=== PATIENT | male | born 1965 | race Caucasian/White ===

== ENCOUNTER 2018-01-10 20:07 | Inpatient (IN) | payer BC ==
[2018-01-10 20:42] LABS: BASO % 0.1 % (0.0-2.0); EOS # 0.1 K/uL (0.0-0.7); EOS % 1.2 % (0.0-4.0); HEMOGLOBIN 15.5 g/dL (12.0-18.0); LYMPH # 4.1 K/uL (1.0-4.3); MEAN CORPUSCULAR HEMOGLOBIN 30.1 pg (27.0-31.0); MEAN CORPUSCULAR HGB CONC 34.2 g/dL (33.0-37.0); MONO # 0.6 K/uL (0.0-0.8); MONO % 7.4 % (0.0-10.0); NEUT # 3.7 K/uL (1.8-7.0); NEUT % 43.3 % (50.0-75.0); NRBC % 0.1 % (0.0-2.0); RBC 5.15 Mil/uL (4.40-5.90); RED CELL DISTRIBUTION WIDTH 12.3 % (11.5-14.5); WHITE BLOOD COUNT 8.5 K/uL (4.8-10.8)
[2018-01-10 21:05] LABS: PROTHROMBIN TIME 12.6 SECONDS (9.7-12.2)
[2018-01-10 21:06] LABS: D DIMER < 200 ng/mlDDU (0-243); INR 1.1; PARTIAL THROMBOPLASTIN TIME 28 SECONDS (21-34)
[2018-01-10 21:10] LABS: ALBUMIN 4.7 g/dL (3.5-5.0); ALT/SGPT 42 U/L (21-72); AST/SGOT 33 U/L (17-59); BLOOD UREA NITROGEN 20 mg/dL (9-20); GFR AFRICAN-AMERICAN > 60; GFR NON-AFRICAN AMERICAN > 60; LIPASE 202 U/L (23-300)
[2018-01-10] MEDS ORDERED: Potassium Chloride 20 mEq ER Tab PO STA (21:12)
[2018-01-10 21:14] LABS: B-TYPE NATRIURETIC PEPTIDE 35.2 pg/mL (0-900)
[2018-01-10] MEDS ORDERED: Potassium Chloride 20 mEq ER Tab PO ONE (21:20)
[2018-01-10] MEDS ORDERED: Iodixanol 320 MG/ML 100 ML BOTTLE IV ONE (21:35)
--- NOTE | 2018-01-10 23:39 | C.PDOC ---
History Of Present Illness Pt has been having URI symptoms for the past few days. This afternoon he developed chest pain that radiates to his back and face. Time Seen by Provider: 01/10/18 20:12 Chief Complaint (Nursing): Chest Pain History Per: Patient, Family Onset/Duration Of Symptoms: Hrs (4) Current Symptoms Are (Timing): Still Present Severity: Severe Quality: "Pain" Associated Symptoms: Nausea Modifying Factors: Other Indicated Below Alleviating Factors: None Nitro Therapy Administered: 3, Per ED, Partial Relief Additional History Per: Prior Records Past Medical History Reviewed: Historical Data, Nursing Documentation, Vital Signs Vital Signs: Last Vital Signs Temp 97.9 F 01/10/18 23:47 Pulse 76 01/10/18 23:47 Resp 16 01/10/18 23:47 BP 160/87 H 01/10/18 23:47 Pulse Ox 98 01/10/18 23:51 - Medical History PMH: Diabetes, HTN, Hyperlipidemia Surgical History: Appendectomy Family History: States: Unknown Family Hx - Social History Hx Tobacco Use: No Hx Alcohol Use: No Hx Substance Use: No - Immunization History Hx Tetanus Toxoid Vaccination: No Hx Influenza Vaccination: No Hx Pneumococcal Vaccination: No Review Of Systems Except As Marked, All Systems Reviewed And Found Negative. Constitutional: Negative for: Fever, Weakness ENT: Positive for: Nose Congestion Cardiovascular: Positive for: Chest Pain Respiratory: Positive for: Cough. Negative for: Shortness of Breath, Hemoptysis Gastrointestinal: Positive for: Nausea. Negative for: Vomiting, Abdominal Pain Musculoskeletal: Positive for: Back Pain Skin: Negative for: Rash Neurological: Negative for: Weakness, Numbness, Seizures, Altered Mental Status Physical Exam - Physical Exam Appears: In Acute Distress Skin: Normal Color, Warm, Dry, No Rash Head: Atraumatic, Normacephalic Eye(s): bilateral: PERRL, EOMI Neck: Normal ROM, Supple Cardiovascular: Rhythm Regular Respiratory: Normal Breath Sounds, No Accessory Muscle Use Gastrointestinal/Abdominal: Soft, No Tenderness Back: No CVA Tenderness Extremity: Normal ROM, No Pedal Edema, No Calf Tenderness Extremity: Bilateral: Normal Color And Temperature Pulses: Left Radial: Normal, Right Radial: Normal Neurological/Psych: Oriented x3, Normal Motor, Normal Sensation ED Course And Treatment - Laboratory Results Result Diagrams: 01/10/18 20:34 01/10/18 20:34 Lab Interpretation: Abnormal ECG: Interpreted By Me, Viewed By Me ECG Rhythm: Sinus Tachycardia, Nonspecific Changes Rate From EC O2 Sat by Pulse Oximetry: 98 Pulse Ox Interpretation: Normal - Radiology CXR: Interpreted by Me, Viewed By Me CXR Interpretation: Yes: No Acute Disease - CT Scan/US CT Dissection study Other Rad Studies (CT/US): Read By Radiologist, Radiology Report Reviewed CT/US Interpretation: IMPRESSION: 1. No aortic dissection. 2. Pulmonary nodules. For low-risk patients, no follow-up is necessary. For. high-risk patients (smoking history or other known risk factors) an optional CT. at 12 months could be performed. 3. Incidental/non-acute findings are described above. IMPRESSION: 1. No aortic dissection. 2. Kidney lesion, incompletely characterized. Recommend nonemergent. ultrasound or MRI. 3. Incidental/non- acute findings are described above. - Physician Consult Information Physician Contacted: Feliz Louis Outcome Of Conversation: He will consult. He wants pt to receive Plavix 300mg and Lovenox full dose. After discussing with ICU Dr. Castorena, they state pt can be admitted to telemetry floor. ED EKG Interpretation - Interpreted by ED Physician Interpreted by ED Physician: Yes - Type Type: 12 lead EKG (Right sided) - Rhythm Rhythm: Normal sinus - Rate BPM: 96 - Impression Impression:: Non-specific Progress - Interventions Interventions:: Observation, Oxygen - Medications Administered Oral: Aspirin Intravenous: Antiemetic - Data Reviewed Data Reviewed: Lab, Diagnostic imaging, EKG, Old records - Patient Status Patient status: Mostly improved - Critical Care Citical Care: Excluding Proc Time Critical Care Time: 60 minutes - Continuity of Care Discussed patient case with:: Patient, ED Nurse, PMD Discussed pt. case with assessment consultant/specialty: Cardiology, Pulmonary/Crit. Care - Patient Plan Patient Plan: Admission, Telemetry Disposition Discussed With : Myriam Gamboa Comment: She accepted pt on her service. Doctor Will See Patient In The: Hospital Counseled Patient/Family Regarding: Studies Performed, Diagnosis - Disposition Disposition: HOSPITALIZED Disposition Time: 00:12 Condition: SERIOUS - Clinical Impression Clinical Impression: NSTEMI (non-ST elevated myocardial infarction)
--- NOTE | 2018-01-10 23:41 | CT ---
EXAM: CT Chest Without and With Intravenous Contrast CLINICAL HISTORY: 52 years old, male; Pain; Abdominal pain; Flank; Upper; Chest pain; Radiating; Additional info: Chest pain radiating to back TECHNIQUE: Axial computed tomography images of the chest without and with intravenous contrast during the arterial phase of enhancement. All CT scans at this facility use one or more dose reduction techniques, viz.: automated exposure control; ma/kV adjustment per patient size (including targeted exams where dose is matched to indication; i.e. head); or iterative reconstruction technique. Coronal and sagittal reformatted images were created and reviewed. CONTRAST: 100 mL of [id number] administered intravenously. COMPARISON: No relevant prior studies available. FINDINGS: Pulmonary arteries: No pulmonary embolism. Aorta: No dissection. No aneurysm. Minimal atherosclerotic disease. Lungs: No consolidation. RLL calcified granuloma. Few pulmonary nodules, up to 0.3 cm. Pleural space: No significant effusion. No pneumothorax. Heart: No cardiomegaly. No significant pericardial effusion. Mild coronary artery calcifications. Bones/joints: Mild degenerative changes of spine. No acute fracture. Soft tissues: Unremarkable. Lymph nodes: Few calcified hilar lymph nodes. IMPRESSION: 1. No aortic dissection. 2. Pulmonary nodules. For low-risk patients, no follow-up is necessary. For high-risk patients (smoking history or other known risk factors) an optional CT at 12 months could be performed. 3. Incidental/non-acute findings are described above. EXAM: CT Abdomen and Pelvis Without and With Intravenous Contrast CLINICAL HISTORY: 52 years old, male; Pain; Abdominal pain; Flank; Upper; Chest pain; Radiating; Additional info: Chest pain radiating to back TECHNIQUE: Axial computed tomography images of the abdomen and pelvis without and with intravenous contrast during the arterial phase of enhancement. All CT scans at this facility use one or more dose reduction techniques, viz.: automated exposure control; ma/kV adjustment per patient size (including targeted exams where dose is matched to indication; i.e. head); or iterative reconstruction technique. Coronal and sagittal reformatted images were created and reviewed. CONTRAST: 100 mL of [id number] administered intravenously. COMPARISON: No relevant prior studies available. FINDINGS: VASCULATURE: Aorta: No dissection. No aneurysm. Minimal atherosclerotic disease. Celiac trunk and mesenteric arteries: No occlusion or significant stenosis. Renal arteries: No occlusion or significant stenosis. Iliac arteries: Minimal atherosclerotic disease. No occlusion or significant stenosis. ABDOMEN: Liver: Unremarkable. Gallbladder and bile ducts: No calcified stones. No ductal dilation. Pancreas: No ductal dilation. No mass. Spleen: No splenomegaly. Adrenals: Mild hypertrophy of adrenal glands. Kidneys and ureters: Few small calculi within RIGHT kidney. 2.2 x 2.2 x 2.2 cm lesion within RIGHT kidney, 22 Hounsfield units on post contrast images and 10 Hounsfield units on non-contrast images. Few too small to characterize lesions within RIGHT kidney. No hydronephrosis. Stomach and bowel: No obstruction. No mucosal thickening. Appendix: Appendectomy. PELVIS: Bladder: Unremarkable. Reproductive: Unremarkable as visualized. ABDOMEN and PELVIS: Intraperitoneal space: No significant fluid collection. No free air. Bones/joints: Early degenerative changes of spine. No acute fracture. Soft tissues: Tiny umbilical hernia containing fat. Lymph nodes: No pathologically enlarged lymph nodes. IMPRESSION: 1. No aortic dissection. 2. Kidney lesion, incompletely characterized. Recommend nonemergent ultrasound or MRI. 3. Incidental/non-acute findings are described above.
[2018-01-10] MEDS ORDERED: Enoxaparin 60 mg Syringe SC STA (23:55)
[2018-01-10] MEDS ORDERED: Nitroglycerin 2% Ointment Foilpak UD TOP STA (23:57)
[2018-01-11] MEDS ORDERED: Enoxaparin 80 mg Syringe ONE (00:02)
[2018-01-11] MEDS ORDERED: Nitroglycerin 2% Ointment Foilpak UD TOP ONE ×2 (00:03→09:53)
[2018-01-11] MEDS ORDERED: (Novolin R) Insulin Human Regular 100 units/ml vial IV STA (00:08)
[2018-01-11 04:28] LABS: ALB/GLOB RATIO 1.1 (1.0-2.1); ALBUMIN 3.8 g/dL (3.5-5.0); ALT/SGPT 38 U/L (21-72); AST/SGOT 67 U/L (17-59); BLOOD UREA NITROGEN 19 mg/dL (9-20); CALCIUM 9.1 mg/dl (8.6-10.4); GFR AFRICAN-AMERICAN > 60; GFR NON-AFRICAN AMERICAN > 60
[2018-01-11 04:35] LABS: CK-MB 20.3 ng/mL (0.0-3.38)
[2018-01-11] MEDS ORDERED: Nitroglycerin 50mg in D5W 50 MG/250 ML BOTTLE IV ONE (06:10)
[2018-01-11] MEDS ORDERED: Nitroglycerin 50mg in D5W 50 MG/250 ML BOTTLE IV SCH (06:15)
[2018-01-11] MEDS ORDERED: Heparin 0 ML IV ONE (07:20)
[2018-01-11] MEDS: (Novolog) Insulin Aspart, Recombinant 100 u/ml 10 ml vial SC SCH ×3 (07:30→16:42)
[2018-01-11] MEDS ORDERED: Iohexol 350mgl/ml 50 ML ONE (07:49)
--- NOTE | 2018-01-11 08:05 | CP.PCM.CON ---
History of Present Illness - History of Present Illness History of Present Illness: 52 M with hx of DM, HTN and hyperlipidemia presented with Non STEMI Urgent cath 1. L Main: Patent 2. LAD: Patent, D1 100% 2. L Cx: Distal 80%, OM1 99% 4. RCA: Patent, PDA 70% 5. EF: 55%, Lateral hypo A/P: Multi small vessel disease Continue anticoagulatio with Lovenox, ASA, Plavix, Statins and B blockers IV Hydration NPO after MN except medication For PCI at [place] tomorrow am Past Patient History - Past Social History Smoking Status: Never Smoked - CARDIAC Hx Hypertension: Yes - PULMONARY Hx Respiratory Disorders: No - NEUROLOGICAL Hx Neurological Disorder: No - HEENT Hx HEENT Problems: No - RENAL Hx Chronic Kidney Disease: No - ENDOCRINE/METABOLIC Hx Diabetes Mellitus Type 2: Yes - HEMATOLOGICAL/ONCOLOGICAL Hx Blood Disorders: No - INTEGUMENTARY Hx Dermatological Problems: No - MUSCULOSKELETAL/RHEUMATOLOGICAL Hx Musculoskeletal Disorders: No - GASTROINTESTINAL Hx Gastrointestinal Disorders: No - GENITOURINARY/GYNECOLOGICAL Hx Genitourinary Disorders: No - PSYCHIATRIC Hx Substance Use: No - SURGICAL HISTORY Hx Appendectomy: Yes Meds Allergies/Adverse Reactions: Allergies Allergy/AdvReac Type Severity Reaction Status Date / Time No Known Allergies Allergy Unverified 01/10/18 20:20 - Medications Medications: Current Medications Acetaminophen (Tylenol 325mg Tab) 650 mg PO Q6 PRN PRN Reason: CHEST PAIN Last Admin: 01/11/18 06:34 Dose: 650 mg Amlodipine Besylate (Norvasc) 1 mg PO DAILY [facility] Aspirin (Aspirin Chewable) 1 mg PO DAILY [facility] Clopidogrel Bisulfate (Plavix) 75 mg PO DAILY [facility] Enoxaparin Sodium (Lovenox) 70 mg SC Q12 [facility] Glipizide (Glucotrol) 1 mg PO BID [facility] Home Med (Canagliflozin [Invokana]) 1 tab PO DAILY [facility] Home Med (Linagliptin [Tradjenta]) 1 tab PO DAILY [facility] Nitroglycerin/Dextrose (Nitroglycerin 50 Mg/250 Ml D5w) 50 mg in 250 mls @ 3 mls/hr IV .Q24H [facility]; 10 MCG/MIN PRN Reason: Protocol Last Admin: 01/11/18 06:15 Dose: 3 mls/hr Insulin Aspart (Novolog) 0 unit SC ACTID [facility] PRN Reason: Protocol Losartan Potassium (Cozaar) 1 mg PO DAILY [facility] Metformin HCl (Glucophage) 1 mg PO BID [facility] Pantoprazole Sodium (Protonix Ec Tab) 40 mg PO DAILY [facility] Rosuvastatin Calcium (Crestor) 20 mg PO [facility] Results - Vital Signs Recent Vital Signs: Last Vital Signs Temp 98.2 F 01/11/18 06:55 Pulse 79 01/11/18 06:55 Resp 15 01/11/18 06:55 BP 143/83 01/11/18 06:55 Pulse Ox 98 01/11/18 06:55 - Labs Result Diagrams: 01/10/18 20:34 01/11/18 03:59 Labs: Laboratory Results - last 24 hr 01/10/18 01/10/18 01/10/18 20:18 20:34 20:34 WBC 8.5 RBC 5.15 Hgb 15.5 Hct 45.4 MCV 88.0 MCH 30.1 MCHC 34.2 RDW 12.3 Plt Count 283 MPV 9.0 Neut % (Auto) 43.3 L Lymph % (Auto) 48.0 H [place] % (Auto) 7.4 Eos % (Auto) 1.2 Baso % (Auto) 0.1 Neut # (Auto) 3.7 Lymph # (Auto) 4.1 [place] # (Auto) 0.6 Eos # (Auto) 0.1 Baso # (Auto) 0.0 PT 12.6 H INR 1.1 APTT 28 D-Dimer, Quantitative < 200 Sodium Potassium Chloride Carbon Dioxide Anion Gap BUN Creatinine Est GFR ( Amer) Est GFR (Non-Af Amer) POC Glucose (mg/dL) 399 H Random Glucose Hemoglobin A1c Calcium Total Bilirubin AST ALT Alkaline Phosphatase Total Creatine Kinase CK-MB (Mass) Troponin I NT-Pro-B Natriuret Pep Total Protein Albumin Globulin Albumin/Globulin Ratio Lipase 01/10/18 01/11/18 01/11/18 20:34 00:11 03:59 WBC RBC Hgb Hct MCV MCH MCHC RDW Plt Count MPV Neut % (Auto) Lymph % (Auto) [place] % (Auto) Eos % (Auto) Baso % (Auto) Neut # (Auto) Lymph # (Auto) [place] # (Auto) Eos # (Auto) Baso # (Auto) PT INR APTT D-Dimer, Quantitative Sodium 137 135 Potassium 3.2 L 4.0 Chloride 94 L 97 L Carbon Dioxide 26 24 Anion Gap 21 H 18 BUN 20 19 Creatinine 0.7 L 0.7 L Est GFR ( Amer) > 60 > 60 Est GFR (Non-Af Amer) > 60 > 60 POC Glucose (mg/dL) 257 H Random Glucose 448 H* 344 H Hemoglobin A1c Calcium 10.0 9.1 Total Bilirubin 0.5 0.5 AST 33 67 H D ALT 42 38 Alkaline Phosphatase 150 H 112 Total Creatine Kinase 440 H CK-MB (Mass) 20.3 H Troponin I 0.3690 H* 5.0300 H* NT-Pro-B Natriuret Pep 35.2 Total Protein 9.2 H 7.2 Albumin 4.7 3.8 Globulin 4.5 H 3.4 Albumin/Globulin Ratio 1.0 1.1 Lipase 202 04/16/18 03:59 WBC RBC Hgb Hct MCV MCH MCHC RDW Plt Count MPV Neut % (Auto) Lymph % (Auto) [place] % (Auto) Eos % (Auto) Baso % (Auto) Neut # (Auto) Lymph # (Auto) [place] # (Auto) Eos # (Auto) Baso # (Auto) PT INR APTT D-Dimer, Quantitative Sodium Potassium Chloride Carbon Dioxide Anion Gap BUN Creatinine Est GFR ( Amer) Est GFR (Non-Af Amer) POC Glucose (mg/dL) Random Glucose Hemoglobin A1c 10.3 H Calcium Total Bilirubin AST ALT Alkaline Phosphatase Total Creatine Kinase CK-MB (Mass) Troponin I NT-Pro-B Natriuret Pep Total Protein Albumin Globulin Albumin/Globulin Ratio Lipase
[2018-01-11] MEDS: Sodium Chloride 0.9% 1,000 ML IV SCH ×2 (08:30→21:52)
--- NOTE | 2018-01-11 08:42 | RAD ---
Chest x-ray single frontal view History: Chest pain. Comparison: 01/10/2018 Findings: Mild venous congestion. Tortuous ectatic aorta. Top normal heart size. Degenerative changes in the spine. Impression: Mild venous congestion.
--- NOTE | 2018-01-11 08:52 | CP.PCM.CON ---
History of Present Illness - History of Present Illness History of Present Illness: Critical Care consult note for Dr. Mckeon This is a 52 year old male with PMHx HTN, DM, HLD who presented to the hospital with chest pain. Patient states that he collapsed and was brought in by his . Patient had elevated troponins in the ED and was placed on a Tridil drip. Patient underwent cardiac catheterization earlier this morning with Dr. Louis and found multiple small vessel blockages. Patient is for PCI tomorrow in [employer] for stent placement. PMHx: HTN, DM, HLD PSHx: Appendectomy Allergies: NKDA Social: Denies tobacco, alcohol, drugs. Works in the [employer]. Family Hx: DM runs in the family. No known cardiac history in the family. Review of Systems - Constitutional Constitutional: absent: Chills, Fever - EENT Eyes: absent: Change in Vision Ears: absent: Decreased Hearing Nose/Mouth/Throat: absent: Nasal Congestion - Cardiovascular Cardiovascular: Chest Pain - Respiratory Respiratory: absent: Cough, Dyspnea, Wheezing - Gastrointestinal Gastrointestinal: absent: Abdominal Pain, Nausea, Vomiting - Genitourinary Genitourinary: absent: Dysuria - Musculoskeletal Musculoskeletal: absent: Back Pain - Integumentary Integumentary: absent: Rash - Neurological Neurological: absent: Dizziness, Weakness - Psychiatric Psychiatric: absent: Anxiety - Endocrine Endocrine: absent: Palpitations Past Patient History - Past Social History Smoking Status: Never Smoked - CARDIAC Hx Hypertension: Yes - PULMONARY Hx Respiratory Disorders: No - NEUROLOGICAL Hx Neurological Disorder: No - HEENT Hx HEENT Problems: No - RENAL Hx Chronic Kidney Disease: No - ENDOCRINE/METABOLIC Hx Diabetes Mellitus Type 2: Yes - HEMATOLOGICAL/ONCOLOGICAL Hx Blood Disorders: No - INTEGUMENTARY Hx Dermatological Problems: No - MUSCULOSKELETAL/RHEUMATOLOGICAL Hx Musculoskeletal Disorders: No - GASTROINTESTINAL Hx Gastrointestinal Disorders: No - GENITOURINARY/GYNECOLOGICAL Hx Genitourinary Disorders: No - PSYCHIATRIC Hx Substance Use: No - SURGICAL HISTORY Hx Appendectomy: Yes Meds Allergies/Adverse Reactions: Allergies Allergy/AdvReac Type Severity Reaction Status Date / Time No Known Allergies Allergy Unverified 01/10/18 20:20 - Medications Medications: Current Medications Acetaminophen (Tylenol 325mg Tab) 650 mg PO Q6 PRN PRN Reason: CHEST PAIN Last Admin: 01/11/18 06:34 Dose: 650 mg Amlodipine Besylate (Norvasc) 5 mg PO DAILY [facility] Aspirin (Ecotrin) 81 mg PO DAILY [facility] Clopidogrel Bisulfate (Plavix) 75 mg PO DAILY [facility] Enoxaparin Sodium (Lovenox) 70 mg SC Q12 [facility] Sodium Chloride (Sodium Chloride 0.9%) 1,000 mls @ 80 mls/hr IV .[id number] [facility] Insulin Aspart (Novolog) 0 unit SC ACTID [facility] PRN Reason: Protocol Metoprolol Succinate (Toprol Xl) 12.5 mg PO BID [facility] Pantoprazole Sodium (Protonix Ec Tab) 40 mg PO DAILY [facility] Rosuvastatin Calcium (Crestor) 40 mg PO HS [facility] Physical Exam - Constitutional Appears: No Acute Distress - Head Exam Head Exam: ATRAUMATIC, NORMOCEPHALIC - Eye Exam Eye Exam: EOMI, Normal appearance - ENT Exam ENT Exam: Mucous Membranes Moist - Respiratory Exam Respiratory Exam: Clear to Auscultation Bilateral. absent: Rales, Rhonchi, Wheezes - Cardiovascular Exam Cardiovascular Exam: REGULAR RHYTHM, +S1, +S2 - GI/Abdominal Exam GI & Abdominal Exam: Normal Bowel Sounds, Soft. absent: Distended, Tenderness - Extremities Exam Extremities exam: Positive for: pedal pulses present. Negative for: pedal edema , tenderness - Neurological Exam Neurological exam: Alert, CN II-XII Intact, Oriented x3 - Psychiatric Exam Psychiatric exam: Normal Affect, Normal Mood - Skin Skin Exam: Dry, Warm Additional comments: Cardiac cath site on right groin with no hematoma or signs of bleeding Results - Vital Signs Recent Vital Signs: Last Vital Signs Temp 98.2 F 01/11/18 06:55 Pulse 79 01/11/18 06:55 Resp 15 01/11/18 06:55 BP 143/83 01/11/18 06:55 Pulse Ox 98 01/11/18 06:55 - Labs Result Diagrams: 01/10/18 20:34 01/11/18 03:59 Labs: Laboratory Results - last 24 hr 01/10/18 01/10/18 01/10/18 20:18 20:34 20:34 WBC 8.5 RBC 5.15 Hgb 15.5 Hct 45.4 MCV 88.0 MCH 30.1 MCHC 34.2 RDW 12.3 Plt Count 283 MPV 9.0 Neut % (Auto) 43.3 L Lymph % (Auto) 48.0 H [place] % (Auto) 7.4 Eos % (Auto) 1.2 Baso % (Auto) 0.1 Neut # (Auto) 3.7 Lymph # (Auto) 4.1 [place] # (Auto) 0.6 Eos # (Auto) 0.1 Baso # (Auto) 0.0 PT 12.6 H INR 1.1 APTT 28 D-Dimer, Quantitative < 200 Sodium Potassium Chloride Carbon Dioxide Anion Gap BUN Creatinine Est GFR ( Amer) Est GFR (Non-Af Amer) POC Glucose (mg/dL) 399 H Random Glucose Hemoglobin A1c Calcium Total Bilirubin AST ALT Alkaline Phosphatase Total Creatine Kinase CK-MB (Mass) Troponin I NT-Pro-B Natriuret Pep Total Protein Albumin Globulin Albumin/Globulin Ratio Lipase 01/10/18 01/11/18 01/11/18 20:34 00:11 03:59 WBC RBC Hgb Hct MCV MCH MCHC RDW Plt Count MPV Neut % (Auto) Lymph % (Auto) [place] % (Auto) Eos % (Auto) Baso % (Auto) Neut # (Auto) Lymph # (Auto) [place] # (Auto) Eos # (Auto) Baso # (Auto) PT INR APTT D-Dimer, Quantitative Sodium 137 135 Potassium 3.2 L 4.0 Chloride 94 L 97 L Carbon Dioxide 26 24 Anion Gap 21 H 18 BUN 20 19 Creatinine 0.7 L 0.7 L Est GFR ( Amer) > 60 > 60 Est GFR (Non-Af Amer) > 60 > 60 POC Glucose (mg/dL) 257 H Random Glucose 448 H* 344 H Hemoglobin A1c Calcium 10.0 9.1 Total Bilirubin 0.5 0.5 AST 33 67 H D ALT 42 38 Alkaline Phosphatase 150 H 112 Total Creatine Kinase 440 H CK-MB (Mass) 20.3 H Troponin I 0.3690 H* 5.0300 H* NT-Pro-B Natriuret Pep 35.2 Total Protein 9.2 H 7.2 Albumin 4.7 3.8 Globulin 4.5 H 3.4 Albumin/Globulin Ratio 1.0 1.1 Lipase 202 01/11/18 03:59 WBC RBC Hgb Hct MCV MCH MCHC RDW Plt Count MPV Neut % (Auto) Lymph % (Auto) [place] % (Auto) Eos % (Auto) Baso % (Auto) Neut # (Auto) Lymph # (Auto) [place] # (Auto) Eos # (Auto) Baso # (Auto) PT INR APTT D-Dimer, Quantitative Sodium Potassium Chloride Carbon Dioxide Anion Gap BUN Creatinine Est GFR ( Amer) Est GFR (Non-Af Amer) POC Glucose (mg/dL) Random Glucose Hemoglobin A1c 10.3 H Calcium Total Bilirubin AST ALT Alkaline Phosphatase Total Creatine Kinase CK-MB (Mass) Troponin I NT-Pro-B Natriuret Pep Total Protein Albumin Globulin Albumin/Globulin Ratio Lipase Assessment & Plan - Assessment and Plan (Free Text) Assessment: This is a 52 year old male with PMHx HTN, DM, HLD who presented with chest pain. Patient was diagnosed with NSTEMI and [facility] where he was found with multi-small vessel disease. As such, he is set for PCI in [place] tomorrow. Neuro Awake, Alert Cardio Lovenox 70 mg SC Q12H Lopressor 25 mg PO BID Nitro paste prn chest pain Crestor 40 mg PO HS ASA 81 mg PO daily Plavix 75 mg PO daily Pulm Saturating well Endocrine Accuchecks Novolog Sliding Scale Prophylaxis Protonix 40 mg PO daily Therapeutic Lovenox NS 80 cc/hr Discussed with Dr. Mckeon
[2018-01-11] MEDS ORDERED: Nitroglycerin 2% Ointment Foilpak UD TOP PRN (09:52)
[2018-01-11] MEDS ORDERED: Metoprolol Succinate 12.5 mg XL PO SCH (10:00)
[2018-01-11] MEDS ORDERED: Home Med 1 UNIT (Linagliptin [Tradjenta] 1 TAB) PO SCH (10:00)
[2018-01-11] MEDS ORDERED: Pantoprazole 40 mg EC Tab PO SCH (10:00)
[2018-01-11] MEDS ORDERED: CANAGLIFLOZIN PO SCH (10:00)
--- NOTE | 2018-01-11 10:13 | CP.PCM.HP ---
History of Present Illness - History of Present Illness History of Present Illness: 52 y.o. male with PMH Uncontrolled DM2 Hypertensin Cholesterol Renal Stone admitted due to to [facility] patient reports chets pain few hours [employer], as discomfort and headache- , he tried to eat but chest pain recurred and worsened and went to ER - in ER patient reports he collapsed but no LBM no tounge biting , Labs showed high Troponins but no EKG changes patient was givenm lovenox aspirin and admitted for further evaluation and management PMH Uncontrolled DM2 Hypertension Cholesteriol Renal stone Surgery Appendectomy Medications metformin glipizide losartan AMLODIPINE TRADJENTA ATORVASTATIN INVOKANA IMMUNIZATION PNEUMOVAX 2014 FLU SHOT 2017 Present on Admission - Present on Admission Any Indicators Present on Admission: Yes History of DVT/PE: No History of Uncontrolled Diabetes: Yes Urinary Catheter: No Decubitus Ulcer Present: No Review of Systems - Constitutional Constitutional: absent: Anorexia, Chills, Fever - EENT Eyes: absent: Other Visual Disturbances Ears: absent: Decreased Hearing Nose/Mouth/Throat: absent: Epistaxis, Nasal Congestion, Sore Throat - Cardiovascular Cardiovascular: Chest Pain, Dyspnea, Lightheadedness, Syncope - Respiratory Respiratory: absent: Cough - Gastrointestinal Gastrointestinal: absent: Abdominal Pain, Diarrhea, Vomiting - Genitourinary Genitourinary: absent: Difficulty Urinating, Flank Pain, Hematuria - Musculoskeletal Musculoskeletal: absent: Abnormal Gait, Deformity - Integumentary Integumentary: absent: Bleeding Lesions, Skin Ulcer, Sores, Jaundice - Neurological Neurological: absent: Abnormal Gait, Behavioral Changes, Disequilibrium, Dizziness - Psychiatric Psychiatric: absent: Confusion, Depression, Memory Loss - Endocrine Endocrine: absent: Polydipsia, Polyphagia - Hematologic/Lymphatic Hematologic: Easy Bruising. absent: Easy Bleeding Past Patient History - Past Medical History & Family History Past Medical History?: Yes - Past Social History Smoking Status: Never Smoked - CARDIAC Hx Hypertension: Yes - PULMONARY Hx Respiratory Disorders: No - NEUROLOGICAL Hx Neurological Disorder: No - HEENT Hx HEENT Problems: No - RENAL Hx Chronic Kidney Disease: No - ENDOCRINE/METABOLIC Hx Diabetes Mellitus Type 2: Yes - HEMATOLOGICAL/ONCOLOGICAL Hx Blood Disorders: No - INTEGUMENTARY Hx Dermatological Problems: No - MUSCULOSKELETAL/RHEUMATOLOGICAL Hx Musculoskeletal Disorders: No - GASTROINTESTINAL Hx Gastrointestinal Disorders: No - GENITOURINARY/GYNECOLOGICAL Hx Genitourinary Disorders: No - PSYCHIATRIC Hx Substance Use: No - SURGICAL HISTORY Hx Appendectomy: Yes Meds Allergies/Adverse Reactions: Allergies Allergy/AdvReac Type Severity Reaction Status Date / Time No Known Allergies Allergy Unverified 01/10/18 20:20 Physical Exam - Constitutional Appears: Other (PATIENT SEEN IN ICU- POST CARDIAC CATH- PATIENT IS CONVERSANT, VERY MUCH AWWARE OF CONDITION, EVENTS AND PLAN DISCUSSED BY DR TENA ) - Head Exam Head Exam: ATRAUMATIC, NORMOCEPHALIC - Eye Exam Eye Exam: Normal appearance. absent: Nystagmus - ENT Exam ENT Exam: Mucous Membranes Moist - Neck Exam Neck exam: Positive for: Full Rom - Respiratory Exam Respiratory Exam: Clear to Auscultation Bilateral, NORMAL BREATHING PATTERN - Cardiovascular Exam Cardiovascular Exam: REGULAR RHYTHM - GI/Abdominal Exam GI & Abdominal Exam: Normal Bowel Sounds, Soft - Extremities Exam Extremities exam: Positive for: full ROM, normal inspection, pedal pulses present. Negative for: joint swelling, pedal edema, tenderness - Back Exam Back exam: FULL ROM. absent: rash noted, tenderness - Neurological Exam Neurological exam: Alert, Normal Gait, Oriented x3, Reflexes Normal - Psychiatric Exam Psychiatric exam: Normal Affect, Normal Mood - Skin Skin Exam: Intact, Normal Color Results - Vital Signs Recent Vital Signs: Last Vital Signs Temp 98.2 F 01/11/18 06:55 Pulse 79 01/11/18 06:55 Resp 15 01/11/18 06:55 BP 143/83 01/11/18 06:55 Pulse Ox 98 01/11/18 06:55 - Labs Result Diagrams: 01/10/18 20:34 01/11/18 03:59 Labs: Laboratory Results - last 24 hr 01/10/18 01/10/18 01/10/18 20:18 20:34 20:34 WBC 8.5 RBC 5.15 Hgb 15.5 Hct 45.4 MCV 88.0 MCH 30.1 MCHC 34.2 RDW 12.3 Plt Count 283 MPV 9.0 Neut % (Auto) 43.3 L Lymph % (Auto) 48.0 H [place] % (Auto) 7.4 Eos % (Auto) 1.2 Baso % (Auto) 0.1 Neut # (Auto) 3.7 Lymph # (Auto) 4.1 [place] # (Auto) 0.6 Eos # (Auto) 0.1 Baso # (Auto) 0.0 PT 12.6 H INR 1.1 APTT 28 D-Dimer, Quantitative < 200 Sodium Potassium Chloride Carbon Dioxide Anion Gap BUN Creatinine Est GFR ( Amer) Est GFR (Non-Af Amer) POC Glucose (mg/dL) 399 H Random Glucose Hemoglobin A1c Calcium Total Bilirubin AST ALT Alkaline Phosphatase Total Creatine Kinase CK-MB (Mass) Troponin I NT-Pro-B Natriuret Pep Total Protein Albumin Globulin Albumin/Globulin Ratio Lipase 01/10/18 01/11/18 01/11/18 20:34 00:11 03:59 WBC RBC Hgb Hct MCV MCH MCHC RDW Plt Count MPV Neut % (Auto) Lymph % (Auto) [place] % (Auto) Eos % (Auto) Baso % (Auto) Neut # (Auto) Lymph # (Auto) [place] # (Auto) Eos # (Auto) Baso # (Auto) PT INR APTT D-Dimer, Quantitative Sodium 137 135 Potassium 3.2 L 4.0 Chloride 94 L 97 L Carbon Dioxide 26 24 Anion Gap 21 H 18 BUN 20 19 Creatinine 0.7 L 0.7 L Est GFR ( Amer) > 60 > 60 Est GFR (Non-Af Amer) > 60 > 60 POC Glucose (mg/dL) 257 H Random Glucose 448 H* 344 H Hemoglobin A1c Calcium 10.0 9.1 Total Bilirubin 0.5 0.5 AST 33 67 H D ALT 42 38 Alkaline Phosphatase 150 H 112 Total Creatine Kinase 440 H CK-MB (Mass) 20.3 H Troponin I 0.3690 H* 5.0300 H* NT-Pro-B Natriuret Pep 35.2 Total Protein 9.2 H 7.2 Albumin 4.7 3.8 Globulin 4.5 H 3.4 Albumin/Globulin Ratio 1.0 1.1 Lipase 202 01/11/18 01/11/18 03:59 09:03 WBC RBC Hgb Hct MCV MCH MCHC RDW Plt Count MPV Neut % (Auto) Lymph % (Auto) [place] % (Auto) Eos % (Auto) Baso % (Auto) Neut # (Auto) Lymph # (Auto) [place] # (Auto) Eos # (Auto) Baso # (Auto) PT INR APTT D-Dimer, Quantitative Sodium Potassium Chloride Carbon Dioxide Anion Gap BUN Creatinine Est GFR ( Amer) Est GFR (Non-Af Amer) POC Glucose (mg/dL) 285 H Random Glucose Hemoglobin A1c 10.3 H Calcium Total Bilirubin AST ALT Alkaline Phosphatase Total Creatine Kinase CK-MB (Mass) Troponin I NT-Pro-B Natriuret Pep Total Protein Albumin Globulin Albumin/Globulin Ratio Lipase Assessment & Plan - Assessment and Plan (Free Text) Assessment: PATIENT WITH HISTORY OF UNCONTROLLED DIABETES @- DUE TO POOR COMPLIANCE, HYPERTENSION ADMITTED DUE TO NSTEMI- POST CARDIAC CATH TODAY- FINDINS PER CARDIO NOTES- FOR STENT IN MAYBEURY TOMORROW- , CURRENTLY IN ICU, CARDIAC MEDS NIDDM2 UNCONTROLLED- ACCUCHECK DIETARY DISCUSSION , INSULIN COVERAGE, CONTINUE MEDICATIONS HYPERTENSION- ON MEDS GI PROPHYLAXIZ ON LOVENOX CT NO DISSECTION CXR-SPINE DJD, MILD VENOUS CONGESTION FURTHER DISCUSSION WITH PATIENT STABLE - Date & Time Date: 01/11/18 Time: 08:45
[2018-01-11] MEDS: Enoxaparin 80 mg Syringe SC SCH ×2 (10:59→21:53)
[2018-01-11] MEDS ORDERED: (Novolin R) Insulin Human Regular 100 units/ml vial SC SCH (11:30)
[2018-01-11] MEDS ORDERED: Metoprolol 1 mg/ml Inj IVP ONE (15:07)
[2018-01-11] MEDS: Metoprolol Succinate 12.5 mg XL PO SCH (17:41)
[2018-01-12 06:24] LABS: BASO % 0.3 % (0.0-2.0); EOS # 0.1 K/uL (0.0-0.7); EOS % 0.7 % (0.0-4.0); HEMOGLOBIN 14.6 g/dL (12.0-18.0); LYMPH # 3.1 K/uL (1.0-4.3); MEAN CELL VOLUME 87.5 fL (80.0-94.0); MEAN CORPUSCULAR HEMOGLOBIN 29.9 pg (27.0-31.0); MEAN CORPUSCULAR HGB CONC 34.1 g/dL (33.0-37.0); MEAN PLATELET VOLUME 9.1 fL (7.2-11.7); MONO # 0.7 K/uL (0.0-0.8); MONO % 6.6 % (0.0-10.0); NEUT # 7.2 K/uL (1.8-7.0); NEUT % 64.4 % (50.0-75.0); NRBC % 0.1 % (0.0-2.0); RBC 4.88 Mil/uL (4.40-5.90); RED CELL DISTRIBUTION WIDTH 12.3 % (11.5-14.5); WHITE BLOOD COUNT 11.2 K/uL (4.8-10.8)
[2018-01-12 06:42] LABS: ALBUMIN 4.1 g/dL (3.5-5.0); ALT/SGPT 39 U/L (21-72); AST/SGOT 92 U/L (17-59); BLOOD UREA NITROGEN 12 mg/dL (9-20); CALCIUM 8.9 mg/dl (8.6-10.4); GFR AFRICAN-AMERICAN > 60; GFR NON-AFRICAN AMERICAN > 60
[2018-01-12] MEDS: (Novolog) Insulin Aspart, Recombinant 100 u/ml 10 ml vial SC SCH ×4 (07:55→21:18)
--- NOTE | 2018-01-12 09:21 | CARDCATH ---
PROCEDURE DATE: 01/11/2018 PROCEDURES: 1. Left heart catheterization. 2. Coronary angiogram. 3. Radiological supervision and radiological interpretation of the coronary angiogram and left heart catheterization. CLINICAL INDICATIONS: 1. Chest pain. 2. Non-ST elevation myocardial infarction. 3. Coronary artery disease. 4. Hypertension. 5. Hyperlipidemia. 6. Diabetes type 2. REFERRING PHYSICIAN: Myriam Gamboa MD PERFORMING PHYSICIAN: Feliz Louis MD PROCEDURE: After informed consent, the patient was prepped and draped in the usual sterile fashion. A 2% lidocaine was given in the right groin for local anesthesia. Using micropuncture technique, a 6-Malay sheath was introduced into the right common femoral artery. A 6-Malay JL4 diagnostic catheter crossed into the left ventricle across the aortic valve. LV end-diastolic pressure was measured. Contrast injected and the LV angiogram was done. Then the catheter was pulled back across the aortic valve. Gradient across the aortic valve was measured. Then the same catheter was engaged into the right coronary artery. Contrast injected and right coronary angiogram was done. A JL4 6-Malay diagnostic catheter engaged into left main coronary artery. Contrast injected and left coronary angiogram was performed. The patient tolerated the procedure well. Post procedure, Perclose suture deployed with excellent hemostasis. FINDINGS: 1. Left main coronary artery is patent. 2. Left anterior descending coronary artery is patent; however, large D1 has 100% proximal occlusion. 3. Distal left circumflex has a diffuse long 80% stenosis. Obtuse marginal 1 has 99% mid stenosis. 4. Right coronary artery is patent; however PDA has 70% mid stenosis. 5. LV ejection fraction is approximately 55%. There is lateral wall hypokinesis. EDP is 20. No gradient across the aortic valve. IMPRESSION: Multivessel disease as described above. The patient will be transferred to [facility] for elective interventions of diagonal and left circumflex coronary artery. After one month, the patient will be scheduled for right coronary artery intervention. The patient will be transferred to Intensive Care Unit for further management. Feliz Louis MD
[2018-01-12] MEDS: Enoxaparin 80 mg Syringe SC SCH (09:41)
[2018-01-12] MEDS: Metoprolol Succinate 12.5 mg XL PO SCH (09:42)
--- NOTE | 2018-01-12 13:22 | CP.PCM.PN ---
Subjective - Date & Time of Evaluation Date of Evaluation: 01/12/18 Time of Evaluation: 13:20 - Subjective Subjective: Patient s/p L Cx and OM 1Drug Eluting stents placement PTCA of large D1 IV hydration Ambulate after 4pm today Check labs in am BP management CAD management Objective - Vital Signs/Intake and Output Vital Signs (last 24 hours): Temp Pulse Resp BP Pulse Ox 97.9 F 85 19 169/100 H 97 01/12/18 04:00 01/12/18 06:51 01/12/18 06:51 01/12/18 06:51 01/12/18 05:00 Intake and Output: 01/12/18 01/12/18 06:59 18:59 Intake Total 1630 Output Total 2100 Balance -470 - Medications Medications: Current Medications Acetaminophen (Tylenol 325mg Tab) 650 mg PO Q6 PRN PRN Reason: CHEST PAIN Last Admin: 01/11/18 20:28 Dose: 650 mg Aspirin (Ecotrin) 81 mg PO DAILY [facility] Last Admin: 01/12/18 09:41 Dose: Not Given Clopidogrel Bisulfate (Plavix) 75 mg PO DAILY [facility] Last Admin: 01/12/18 09:42 Dose: Not Given Enoxaparin Sodium (Lovenox) 40 mg SC DAILY [facility] Famotidine (Pepcid) 20 mg PO BID [facility] Last Admin: 01/12/18 09:42 Dose: Not Given Sodium Chloride (Sodium Chloride 0.45%) 1,000 mls @ 70 mls/hr IV .[id number] [facility] Stop: 01/13/18 23:59 Insulin Aspart (Novolog) 0 unit SC ACTID [facility] PRN Reason: Protocol Last Admin: 01/12/18 11:14 Dose: Not Given Metoprolol Succinate (Toprol Xl) 25 mg PO BID [facility] Rosuvastatin Calcium (Crestor) 40 mg PO HS [facility] Last Admin: 01/11/18 21:53 Dose: 40 mg - Labs Labs: 01/12/18 06:12 01/12/18 06:14 PT 12.6 SECONDS (9.7-12.2) H 01/10/18 20:34 INR 1.1 01/10/18 20:34 APTT 28 SECONDS (21-34) 01/10/18 20:34
[2018-01-12] MEDS: Sodium Chloride 0.45% 1,000 ML IV SCH ×2 (13:46→16:30)
--- NOTE | 2018-01-12 16:48 | CP.CCUPN ---
<Ashutosh Dela Cruz Esther - Last Filed: 01/12/18 16:42> CCU Subjective - Physician Review Subjective (Free Text): 01/12/18 16:42 Patient seen and examined at bedside. Patient has returned from [facility] where he had drug eluting stents placed. Patient complaining of headache that was not relieved by Tylenol at [place]. No other acute complaints at this time. CCU Objective - Vital Signs / Intake & Output Intake and Output (Last 8hrs): Intake & Output 01/12/18 01/12/18 01/12/18 06:59 14:59 22:59 Intake Total 560 Output Total 1100 Balance -540 Weight 145 lb 14.4 oz Intake: Intake, IV Amount 560 Right Hand 560 Output: Urine 1100 Urine, Voided 1100 Other: # Bowel Movements 1 - Physical Exam Head: Positive for: Atraumatic, Normocephalic Pupils: Positive for: PERRL Extroacular Muscles: Positive for: EOMI Conjunctiva: Positive for: Normal Mouth: Positive for: Moist Mucous Membranes Respiratory/Chest: Positive for: Clear to Auscultation. Negative for: Wheezes, Rales, Rhonchi Cardiovascular: Positive for: Normal S1, S2, Tachycardic Abdomen: Positive for: Normal Bowel Sounds. Negative for: Tenderness Upper Extremity: Positive for: Normal Inspection Lower Extremity: Positive for: Other (left femoral access site without signs of bleeding or hematoma) Neurological: Positive for: GCS=15 Skin: Positive for: Warm, Dry Psychiatric: Positive for: Alert, Oriented x 3 - Medications Active Medications: Active Medications Generic Name Dose Route Start Last Admin Trade Name Proq PRN Reason Stop Dose Admin Acetaminophen 650 mg 01/11/18 06:04 01/11/18 20:28 Tylenol 325mg Tab PO 650 mg Q6 PRN Administration CHEST PAIN Aspirin 81 mg 01/11/18 10:00 01/12/18 09:41 Ecotrin PO Not Given DAILY [facility] Clopidogrel Bisulfate 75 mg 01/11/18 10:00 01/12/18 09:42 Plavix PO Not Given DAILY [facility] Enoxaparin Sodium 40 mg 01/13/18 10:00 Lovenox SC DAILY [facility] Famotidine 20 mg 01/12/18 10:00 01/12/18 09:42 Pepcid PO Not Given BID [facility] Sodium Chloride 1,000 mls @ 70 mls/hr 01/12/18 13:30 01/12/18 13:46 Sodium Chloride 0.45% IV 01/13/18 23:59 Not Given .[id number] [facility] Insulin Aspart 0 unit 01/11/18 07:30 01/12/18 11:14 Novolog SC Not Given ACTID [facility] Protocol Metoprolol Succinate 25 mg 01/12/18 18:00 Toprol Xl PO BID [facility] Rosuvastatin Calcium 40 mg 01/11/18 22:00 01/11/18 21:53 Crestor PO 40 mg HS [facility] Administration - Patient Studies Lab Studies: Microbiology Studies 01/11/18 08:30 MRSA Culture (Admit) - Final Naris MRSA NOT DETECTED Lab Studies 01/12/18 01/12/18 01/12/18 Range/Units 16:35 06:14 06:12 WBC 11.2 H (4.8-10.8) K/uL RBC 4.88 (4.40-5.90) Mil/uL Hgb 14.6 (12.0-18.0) g/dL Hct 42.7 (35.0-51.0) % MCV 87.5 (80.0-94.0) fL MCH 29.9 (27.0-31.0) pg MCHC 34.1 (33.0-37.0) g/dL RDW 12.3 (11.5-14.5) % Plt Count 276 (130-400) K/uL MPV 9.1 (7.2-11.7) fL Neut % (Auto) 64.4 (50.0-75.0) % Lymph % (Auto) 28.0 (20.0-40.0) % [place] % (Auto) 6.6 (0.0-10.0) % Eos % (Auto) 0.7 (0.0-4.0) % Baso % (Auto) 0.3 (0.0-2.0) % Neut # (Auto) 7.2 H (1.8-7.0) K/uL Lymph # (Auto) 3.1 (1.0-4.3) K/uL [place] # (Auto) 0.7 (0.0-0.8) K/uL Eos # (Auto) 0.1 (0.0-0.7) K/uL Baso # (Auto) 0.0 (0.0-0.2) K/uL Sodium 138 (132-148) mmol/L Potassium 4.4 (3.6-5.2) mmol/L Chloride 96 L (98-107) mmol/L Carbon Dioxide 29 (22-30) mmol/L Anion Gap 17 (10-20) BUN 12 (9-20) mg/dL Creatinine 0.7 L (0.8-1.5) mg/dL Est GFR ( Amer) > 60 Est GFR (Non-Af Amer) > 60 POC Glucose (mg/dL) 394 H (65-110) mg/dL Random Glucose 245 H (75-110) mg/dL Calcium 8.9 (8.6-10.4) mg/dl Phosphorus 3.1 (2.5-4.5) mg/dL Magnesium 1.7 (1.6-2.3) mg/dL Total Bilirubin 1.1 (0.2-1.3) mg/dL AST 92 H D (17-59) U/L ALT 39 (21-72) U/L Alkaline Phosphatase 97 (38-126) U/L Troponin I (0.00-0.120) ng/mL Total Protein 8.3 (6.3-8.3) g/dL Albumin 4.1 (3.5-5.0) g/dL Globulin 4.2 H (2.2-3.9) gm/dL Albumin/Globulin Ratio 1.0 (1.0-2.1) 01/11/18 01/11/18 Range/Units 21:10 19:30 WBC (4.8-10.8) K/uL RBC (4.40-5.90) Mil/uL Hgb (12.0-18.0) g/dL Hct (35.0-51.0) % MCV (80.0-94.0) fL MCH (27.0-31.0) pg MCHC (33.0-37.0) g/dL RDW (11.5-14.5) % Plt Count (130-400) K/uL MPV (7.2-11.7) fL Neut % (Auto) (50.0-75.0) % Lymph % (Auto) (20.0-40.0) % [place] % (Auto) (0.0-10.0) % Eos % (Auto) (0.0-4.0) % Baso % (Auto) (0.0-2.0) % Neut # (Auto) (1.8-7.0) K/uL Lymph # (Auto) (1.0-4.3) K/uL [place] # (Auto) (0.0-0.8) K/uL Eos # (Auto) (0.0-0.7) K/uL Baso # (Auto) (0.0-0.2) K/uL Sodium (132-148) mmol/L Potassium (3.6-5.2) mmol/L Chloride (98-107) mmol/L Carbon Dioxide (22-30) mmol/L Anion Gap (10-20) BUN (9-20) mg/dL Creatinine (0.8-1.5) mg/dL Est GFR ( Amer) Est GFR (Non-Af Amer) POC Glucose (mg/dL) 266 H (65-110) mg/dL Random Glucose (75-110) mg/dL Calcium (8.6-10.4) mg/dl Phosphorus (2.5-4.5) mg/dL Magnesium (1.6-2.3) mg/dL Total Bilirubin (0.2-1.3) mg/dL AST (17-59) U/L ALT (21-72) U/L Alkaline Phosphatase (38-126) U/L Troponin I 13.1000 H* (0.00-0.120) ng/mL Total Protein (6.3-8.3) g/dL Albumin (3.5-5.0) g/dL Globulin (2.2-3.9) gm/dL Albumin/Globulin Ratio (1.0-2.1) Laboratory Results - last 24 hr 01/11/18 01/11/18 01/12/18 19:30 21:10 06:12 WBC 11.2 H RBC 4.88 Hgb 14.6 Hct 42.7 MCV 87.5 MCH 29.9 MCHC 34.1 RDW 12.3 Plt Count 276 MPV 9.1 Neut % (Auto) 64.4 Lymph % (Auto) 28.0 [place] % (Auto) 6.6 Eos % (Auto) 0.7 Baso % (Auto) 0.3 Neut # (Auto) 7.2 H Lymph # (Auto) 3.1 [place] # (Auto) 0.7 Eos # (Auto) 0.1 Baso # (Auto) 0.0 Sodium Potassium Chloride Carbon Dioxide Anion Gap BUN Creatinine Est GFR ( Amer) Est GFR (Non-Af Amer) POC Glucose (mg/dL) 266 H Random Glucose Calcium Phosphorus Magnesium Total Bilirubin AST ALT Alkaline Phosphatase Troponin I 13.1000 H* Total Protein Albumin Globulin Albumin/Globulin Ratio 01/12/18 01/12/18 06:14 16:35 WBC RBC Hgb Hct MCV MCH MCHC RDW Plt Count MPV Neut % (Auto) Lymph % (Auto) [place] % (Auto) Eos % (Auto) Baso % (Auto) Neut # (Auto) Lymph # (Auto) [place] # (Auto) Eos # (Auto) Baso # (Auto) Sodium 138 Potassium 4.4 Chloride 96 L Carbon Dioxide 29 Anion Gap 17 BUN 12 Creatinine 0.7 L Est GFR ( Amer) > 60 Est GFR (Non-Af Amer) > 60 POC Glucose (mg/dL) 394 H Random Glucose 245 H Calcium 8.9 Phosphorus 3.1 Magnesium 1.7 Total Bilirubin 1.1 AST 92 H D ALT 39 Alkaline Phosphatase 97 Troponin I Total Protein 8.3 Albumin 4.1 Globulin 4.2 H Albumin/Globulin Ratio 1.0 Fingerstick Blood Sugar Results: 307 Critical Care Progress Note - Nutrition Nutrition: Nutrition Category Date Time Status Heart Healthy Diet [DIET] Diets 01/12/18 Lunch Active Assessment/Plan - Assessment and Plan (Free Text) Assessment: This is a 52 year old male with PMHx HTN, DM, HLD who presented with chest pain. Patient was diagnosed with NSTEMI and taken to the clinical lab assistant on 01/11/18 where he was found with multi-small vessel disease. Patient underwent PCI in [place] where drug eluting stents were placed. Neuro Awake, Alert Cardio Lopressor 25 mg PO BID Crestor 40 mg PO HS ASA 81 mg PO daily Plavix 75 mg PO daily Pulm Saturating well Endocrine Accuchecks Novolog Sliding Scale Prophylaxis Pepcid 20 mg PO BID Lovenox 40 mg SC daily starting tomorrow NS 70 cc/hr Discussed with Dr. Arriaza <Anders Arriaza S - Last Filed: 01/12/18 18:42> CCU Objective - Vital Signs / Intake & Output Vital Signs (Last 4 hours): Vital Signs Temp Pulse Resp BP Pulse Ox 01/12/18 18:07 107 H 22 139/92 H 97 01/12/18 18:00 98.5 F 118 H 18 139/92 H 96 01/12/18 17:51 115 H 18 144/95 H 96 01/12/18 17:36 121 H 22 152/92 H 98 01/12/18 17:30 98.0 F 120 H 18 147/98 H 01/12/18 17:22 120 H 19 147/98 H 96 01/12/18 17:15 98.0 F 116 H 18 144/85 01/12/18 17:12 117 H 17 144/85 95 01/12/18 17:07 124 H 17 152/92 H 96 01/12/18 17:00 98.0 F 122 H 18 152/92 H 97 01/12/18 16:52 134 H 16 167/80 H 97 01/12/18 16:45 98.6 F 122 H 22 167/80 H 01/12/18 16:30 98.4 F 118 H 17 162/101 H 96 01/12/18 16:28 120 H 14 Intake and Output (Last 8hrs): Intake & Output 01/12/18 01/12/18 01/12/18 06:59 14:59 22:59 Intake Total 560 355 Output Total 1100 350 Balance -540 5 Weight 145 lb 14.4 oz Intake: Intake, IV Amount 560 105 Right Hand 560 105 Oral 250 Output: Urine 1100 350 Urine, Voided 1100 350 Other: # Voids Urine, Voided 0 # Bowel Movements 1 0 - Medications Active Medications: Active Medications Generic Name Dose Route Start Last Admin Trade Name Freq PRN Reason Stop Dose Admin Acetaminophen 650 mg 01/11/18 06:04 01/11/18 20:28 Tylenol 325mg Tab PO 650 mg Q6 PRN Administration CHEST PAIN Aspirin 81 mg 01/11/18 10:00 01/12/18 09:41 Ecotrin PO Not Given DAILY [facility] Clopidogrel Bisulfate 75 mg 01/11/18 10:00 01/12/18 09:42 Plavix PO Not Given DAILY [facility] Enoxaparin Sodium 40 mg 01/13/18 10:00 Lovenox SC DAILY [facility] Famotidine 20 mg 01/12/18 10:00 01/12/18 17:17 Pepcid PO 20 mg BID [facility] Administration Sodium Chloride 1,000 mls @ 70 mls/hr 01/12/18 13:30 01/12/18 16:30 Sodium Chloride 0.45% IV 01/13/18 23:59 70 mls/hr .[id number] [facility] Administration Insulin Aspart 0 unit 01/11/18 07:30 01/12/18 16:55 Novolog SC 10 unit ACTID [facility] Administration Protocol Losartan Potassium 25 mg 01/12/18 17:15 01/12/18 17:17 Cozaar PO 25 mg DAILY [facility] Administration Metoprolol Tartrate 50 mg 01/12/18 18:00 01/12/18 17:17 Lopressor PO 50 mg BID [facility] Administration Rosuvastatin Calcium 40 mg 01/11/18 22:00 01/11/18 21:53 Crestor PO 40 mg HS DERE[facility] Administration - Patient Studies Lab Studies: Microbiology Studies 01/11/18 08:30 MRSA Culture (Admit) - Final Naris MRSA NOT DETECTED Lab Studies 01/12/18 01/12/18 01/12/18 Range/Units 16:35 06:14 06:12 WBC 11.2 H (4.8-10.8) K/uL RBC 4.88 (4.40-5.90) Mil/uL Hgb 14.6 (12.0-18.0) g/dL Hct 42.7 (35.0-51.0) % MCV 87.5 (80.0-94.0) fL MCH 29.9 (27.0-31.0) pg MCHC 34.1 (33.0-37.0) g/dL RDW 12.3 (11.5-14.5) % Plt Count 276 (130-400) K/uL MPV 9.1 (7.2-11.7) fL Neut % (Auto) 64.4 (50.0-75.0) % Lymph % (Auto) 28.0 (20.0-40.0) % [place] % (Auto) 6.6 (0.0-10.0) % Eos % (Auto) 0.7 (0.0-4.0) % Baso % (Auto) 0.3 (0.0-2.0) % Neut # (Auto) 7.2 H (1.8-7.0) K/uL Lymph # (Auto) 3.1 (1.0-4.3) K/uL [place] # (Auto) 0.7 (0.0-0.8) K/uL Eos # (Auto) 0.1 (0.0-0.7) K/uL Baso # (Auto) 0.0 (0.0-0.2) K/uL Sodium 138 (132-148) mmol/L Potassium 4.4 (3.6-5.2) mmol/L Chloride 96 L (98-107) mmol/L Carbon Dioxide 29 (22-30) mmol/L Anion Gap 17 (10-20) BUN 12 (9-20) mg/dL Creatinine 0.7 L (0.8-1.5) mg/dL Est GFR ( Amer) > 60 Est GFR (Non-Af Amer) > 60 POC Glucose (mg/dL) 394 H (65-110) mg/dL Random Glucose 245 H (75-110) mg/dL Calcium 8.9 (8.6-10.4) mg/dl Phosphorus 3.1 (2.5-4.5) mg/dL Magnesium 1.7 (1.6-2.3) mg/dL Total Bilirubin 1.1 (0.2-1.3) mg/dL AST 92 H D (17-59) U/L ALT 39 (21-72) U/L Alkaline Phosphatase 97 (38-126) U/L Troponin I (0.00-0.120) ng/mL Total Protein 8.3 (6.3-8.3) g/dL Albumin 4.1 (3.5-5.0) g/dL Globulin 4.2 H (2.2-3.9) gm/dL Albumin/Globulin Ratio 1.0 (1.0-2.1) 01/11/18 01/11/18 Range/Units 21:10 19:30 WBC (4.8-10.8) K/uL RBC (4.40-5.90) Mil/uL Hgb (12.0-18.0) g/dL Hct (35.0-51.0) % MCV (80.0-94.0) fL MCH (27.0-31.0) pg MCHC (33.0-37.0) g/dL RDW (11.5-14.5) % Plt Count (130-400) K/uL MPV (7.2-11.7) fL Neut % (Auto) (50.0-75.0) % Lymph % (Auto) (20.0-40.0) % [place] % (Auto) (0.0-10.0) % Eos % (Auto) (0.0-4.0) % Baso % (Auto) (0.0-2.0) % Neut # (Auto) (1.8-7.0) K/uL Lymph # (Auto) (1.0-4.3) K/uL [place] # (Auto) (0.0-0.8) K/uL Eos # (Auto) (0.0-0.7) K/uL Baso # (Auto) (0.0-0.2) K/uL Sodium (132-148) mmol/L Potassium (3.6-5.2) mmol/L Chloride (98-107) mmol/L Carbon Dioxide (22-30) mmol/L Anion Gap (10-20) BUN (9-20) mg/dL Creatinine (0.8-1.5) mg/dL Est GFR ( Amer) Est GFR (Non-Af Amer) POC Glucose (mg/dL) 266 H (65-110) mg/dL Random Glucose (75-110) mg/dL Calcium (8.6-10.4) mg/dl Phosphorus (2.5-4.5) mg/dL Magnesium (1.6-2.3) mg/dL Total Bilirubin (0.2-1.3) mg/dL AST (17-59) U/L ALT (21-72) U/L Alkaline Phosphatase (38-126) U/L Troponin I 13.1000 H* (0.00-0.120) ng/mL Total Protein (6.3-8.3) g/dL Albumin (3.5-5.0) g/dL Globulin (2.2-3.9) gm/dL Albumin/Globulin Ratio (1.0-2.1) Laboratory Results - last 24 hr 01/11/18 01/11/18 01/12/18 19:30 21:10 06:12 WBC 11.2 H RBC 4.88 Hgb 14.6 Hct 42.7 MCV 87.5 MCH 29.9 MCHC 34.1 RDW 12.3 Plt Count 276 MPV 9.1 Neut % (Auto) 64.4 Lymph % (Auto) 28.0 [place] % (Auto) 6.6 Eos % (Auto) 0.7 Baso % (Auto) 0.3 Neut # (Auto) 7.2 H Lymph # (Auto) 3.1 [place] # (Auto) 0.7 Eos # (Auto) 0.1 Baso # (Auto) 0.0 Sodium Potassium Chloride Carbon Dioxide Anion Gap BUN Creatinine Est GFR ( Amer) Est GFR (Non-Af Amer) POC Glucose (mg/dL) 266 H Random Glucose Calcium Phosphorus Magnesium Total Bilirubin AST ALT Alkaline Phosphatase Troponin I 13.1000 H* Total Protein Albumin Globulin Albumin/Globulin Ratio 01/12/18 01/12/18 06:14 16:35 WBC RBC Hgb Hct MCV MCH MCHC RDW Plt Count MPV Neut % (Auto) Lymph % (Auto) [place] % (Auto) Eos % (Auto) Baso % (Auto) Neut # (Auto) Lymph # (Auto) [place] # (Auto) Eos # (Auto) Baso # (Auto) Sodium 138 Potassium 4.4 Chloride 96 L Carbon Dioxide 29 Anion Gap 17 BUN 12 Creatinine 0.7 L Est GFR ( Amer) > 60 Est GFR (Non-Af Amer) > 60 POC Glucose (mg/dL) 394 H Random Glucose 245 H Calcium 8.9 Phosphorus 3.1 Magnesium 1.7 Total Bilirubin 1.1 AST 92 H D ALT 39 Alkaline Phosphatase 97 Troponin I Total Protein 8.3 Albumin 4.1 Globulin 4.2 H Albumin/Globulin Ratio 1.0 Critical Care Progress Note - Nutrition Nutrition: Nutrition Category Date Time Status Heart Healthy Diet [DIET] Diets 01/12/18 Lunch Active Attending/Attestation - Attestation I have personally seen and examined this patient.: Yes I have fully participated in the care of the patient.: Yes I have reviewed all pertinent clinical information: Yes Notes (Text): 01/12/18 18:41 Patient seen and examined in the intensive care unit. Status post drug eluting stent placed Continue present treatment
[2018-01-12] MEDS ORDERED: Metoprolol Succinate 25 mg XL Tab PO SCH (18:00)
--- NOTE | 2018-01-12 21:09 | CP.PCM.PN ---
Subjective - Date & Time of Evaluation Date of Evaluation: 01/12/18 Time of Evaluation: 20:00 - Subjective Subjective: Patient seen, had stent placed in [place], conversant, aware of condition and plan as discussed by cardio patient awareand wants to go home tomorrow currently has no complaints, , no bleeding , had fed self sugar levels management discussion patient had received dyes during the procedure had IVf, will hold DM pills for now, will start Insulin Objective - Vital Signs/Intake and Output Vital Signs (last 24 hours): Temp Pulse Resp BP Pulse Ox 98.1 F 90 17 134/82 95 01/12/18 20:00 01/12/18 20:01 01/12/18 20:01 01/12/18 20:01 01/12/18 19:01 Intake and Output: 01/12/18 01/13/18 18:59 06:59 Intake Total 355 140 Output Total 350 Balance 5 140 - Medications Medications: Current Medications Acetaminophen (Tylenol 325mg Tab) 650 mg PO Q6 PRN PRN Reason: CHEST PAIN Last Admin: 01/11/18 20:28 Dose: 650 mg Aspirin (Ecotrin) 81 mg PO DAILY [facility] Last Admin: 01/12/18 09:41 Dose: Not Given Clopidogrel Bisulfate (Plavix) 75 mg PO DAILY [facility] Last Admin: 01/12/18 09:42 Dose: Not Given Enoxaparin Sodium (Lovenox) 40 mg SC DAILY [facility] Famotidine (Pepcid) 20 mg PO BID [facility] Last Admin: 01/12/18 17:17 Dose: 20 mg Sodium Chloride (Sodium Chloride 0.45%) 1,000 mls @ 70 mls/hr IV .[id number] [facility] Stop: 01/13/18 23:59 Last Admin: 01/12/18 16:30 Dose: 70 mls/hr Insulin Aspart (Novolog) 0 unit SC ACHS [facility] PRN Reason: Protocol Insulin Glargine (Lantus) 10 unit SC HS [facility] Losartan Potassium (Cozaar) 25 mg PO DAILY [facility] Last Admin: 01/12/18 17:17 Dose: 25 mg Metoprolol Tartrate (Lopressor) 50 mg PO BID [facility] Last Admin: 01/12/18 17:17 Dose: 50 mg Rosuvastatin Calcium (Crestor) 40 mg PO HS [facility] Last Admin: 01/11/18 21:53 Dose: 40 mg - Labs Labs: 01/12/18 06:12 01/12/18 06:14 PT 12.6 SECONDS (9.7-12.2) H 01/10/18 20:34 INR 1.1 01/10/18 20:34 APTT 28 SECONDS (21-34) 01/10/18 20:34 - Constitutional Appears: Non-toxic, No Acute Distress - Head Exam Head Exam: ATRAUMATIC, NORMOCEPHALIC - Eye Exam Eye Exam: Normal appearance - ENT Exam ENT Exam: Mucous Membranes Moist - Neck Exam Neck Exam: Full ROM, Normal Inspection. absent: Tenderness - Respiratory Exam Respiratory Exam: Clear to Ausculation Bilateral, NORMAL BREATHING PATTERN - Cardiovascular Exam Cardiovascular Exam: REGULAR RHYTHM - GI/Abdominal Exam GI & Abdominal Exam: Soft (inguinal cath insertion-bandaged no bleeding), Normal Bowel Sounds - Extremities Exam Extremities Exam: Full ROM, Normal Inspection. absent: Joint Swelling, Pedal Edema - Back Exam Back Exam: Full ROM. absent: rash noted, tenderness - Neurological Exam Neurological Exam: Alert, Awake, Normal Gait, Oriented x3 - Psychiatric Exam Psychiatric exam: Normal Affect - Skin Skin Exam: Intact. absent: Rash Assessment and Plan - Assessment and Plan (Free Text) Assessment: Patient with CAD s/p stent-with no current complaint, further observation Uncontrolled DM- will start insulin, will delay DM pills due to dyes received during cardiac procedures, further DM control discission on statin and cardiac meds Hypertension- controlled plan for home and follow up in clinic
[2018-01-12] MEDS ORDERED: (Lantus) Insulin Glargine, Recombinant SC SCH (22:00)
[2018-01-13] MEDS: Sodium Chloride 0.45% 1,000 ML IV SCH (04:09)
[2018-01-13 06:15] LABS: BASO % 0.1 % (0.0-2.0); EOS % 0.4 % (0.0-4.0); LYMPH # 2.3 K/uL (1.0-4.3); LYMPH % 22.3 % (20.0-40.0); MEAN CORPUSCULAR HEMOGLOBIN 30.3 pg (27.0-31.0); MEAN CORPUSCULAR HGB CONC 34.5 g/dL (33.0-37.0); MONO # 0.6 K/uL (0.0-0.8); MONO % 6.2 % (0.0-10.0); NEUT # 7.2 K/uL (1.8-7.0); NRBC % 0.1 % (0.0-2.0); RBC 4.63 Mil/uL (4.40-5.90); RED CELL DISTRIBUTION WIDTH 12.3 % (11.5-14.5); WHITE BLOOD COUNT 10.2 K/uL (4.8-10.8)
[2018-01-13 06:40] LABS: ALB/GLOB RATIO 1.1 (1.0-2.1); ALBUMIN 3.9 g/dL (3.5-5.0); ALT/SGPT 33 U/L (21-72); AST/SGOT 73 U/L (17-59); BLOOD UREA NITROGEN 14 mg/dL (9-20); CALCIUM 9.1 mg/dl (8.6-10.4); GFR AFRICAN-AMERICAN > 60; GFR NON-AFRICAN AMERICAN > 60
[2018-01-13] MEDS: (Novolog) Insulin Aspart, Recombinant 100 u/ml 10 ml vial SC SCH ×4 (07:42→21:22)
[2018-01-13] MEDS ORDERED: (Lantus) Insulin Glargine, Recombinant SC SCH (07:55)
--- NOTE | 2018-01-13 07:57 | CP.PCM.PN ---
Subjective - Date & Time of Evaluation Date of Evaluation: 01/13/18 Time of Evaluation: 08:00 - Subjective Subjective: Accucheck reviewed- sugar on the high side- now patient feeding- will worsen avoiding PO DM meds due to dye received will adjust Insulin, discussed with ICU nurse was anxxious this ANM- did not get meals on time, BP noted got elevated patient reports headache whenever he misses meals discussion of Insilin education in case cleared by cardio patient has no other complaints- very much aware of condition and plan Objective - Vital Signs/Intake and Output Vital Signs (last 24 hours): Temp Pulse Resp BP Pulse Ox 98.1 F 93 H 13 148/97 H 95 01/12/18 20:00 01/13/18 06:01 01/13/18 06:01 01/13/18 06:01 01/12/18 19:01 Intake and Output: 01/13/18 01/13/18 06:59 18:59 Intake Total 830 Output Total 1950 Balance -1120 - Medications Medications: Current Medications Acetaminophen (Tylenol 325mg Tab) 650 mg PO Q6 PRN PRN Reason: CHEST PAIN Last Admin: 01/13/18 03:07 Dose: 650 mg Aspirin (Ecotrin) 81 mg PO DAILY [facility] Last Admin: 01/12/18 09:41 Dose: Not Given Clopidogrel Bisulfate (Plavix) 75 mg PO DAILY [facility] Last Admin: 01/12/18 09:42 Dose: Not Given Enoxaparin Sodium (Lovenox) 40 mg SC DAILY [facility] Famotidine (Pepcid) 20 mg PO BID [facility] Last Admin: 01/12/18 17:17 Dose: 20 mg Insulin Aspart (Novolog) 0 unit SC [facility] PRN Reason: Protocol Last Admin: 01/13/18 07:42 Dose: 6 unit Insulin Glargine (Lantus) 15 unit SC HS [facility] Losartan Potassium (Cozaar) 25 mg PO DAILY [facility] Last Admin: 01/12/18 17:17 Dose: 25 mg Metoprolol Tartrate (Lopressor) 50 mg PO BID [facility] Last Admin: 01/12/18 17:17 Dose: 50 mg Rosuvastatin Calcium (Crestor) 40 mg PO HS [facility] Last Admin: 01/12/18 22:01 Dose: 40 mg - Labs Labs: 01/13/18 06:04 01/13/18 06:04 PT 12.6 SECONDS (9.7-12.2) H 01/10/18 20:34 INR 1.1 01/10/18 20:34 APTT 28 SECONDS (21-34) 01/10/18 20:34 - Constitutional Appears: Non-toxic - Head Exam Head Exam: ATRAUMATIC, NORMOCEPHALIC - Eye Exam Eye Exam: Normal appearance - ENT Exam ENT Exam: Mucous Membranes Moist - Neck Exam Neck Exam: Full ROM. absent: Tenderness - Respiratory Exam Respiratory Exam: Clear to Ausculation Bilateral, NORMAL BREATHING PATTERN - Cardiovascular Exam Cardiovascular Exam: REGULAR RHYTHM - GI/Abdominal Exam GI & Abdominal Exam: Soft, Normal Bowel Sounds (inguinal no bleeding). absent: Tenderness - Extremities Exam Extremities Exam: Full ROM, Normal Inspection. absent: Joint Swelling, Pedal Edema, Tenderness - Neurological Exam Neurological Exam: Alert, Awake, Normal Gait, Oriented x3 - Psychiatric Exam Psychiatric exam: Normal Affect, Normal Mood (a little anxious due to delay in his meals) - Skin Skin Exam: Intact, Normal Color Assessment and Plan - Assessment and Plan (Free Text) Assessment: patient with CAD post stent-DM2 uncontrolled chronically due to non compliant- started on Insulin,along with sliding scale, avoiding Po meds for now due to dye recived, DM education to patient, Insulin injection education to patient Hypertension -aggravated this am (delay in meals)- to monitor if cleared by cardio- plan for home
--- NOTE | 2018-01-13 08:28 | CP.CCUPN ---
<Ashutosh Dela Cruz - Last Filed: 01/13/18 12:23> CCU Subjective - Physician Review Subjective (Free Text): 01/12/18 16:42 Patient seen and examined at bedside. Patient has returned from [facility] where he had drug eluting stents placed. Patient complaining of headache that was not relieved by Tylenol at [place]. No other acute complaints at this time. 01/13/18 08:28 Patient seen and examined. Patient reports resolution of headache and has no acute complaints at this time. CCU Objective - Vital Signs / Intake & Output Vital Signs (Last 4 hours): Vital Signs Temp Pulse Resp BP Pulse Ox 01/13/18 08:01 95 H 18 159/104 H 01/13/18 08:00 97.8 F 97 H 12 99 01/13/18 07:33 95 H 11 L 148/102 H 01/13/18 06:01 93 H 13 148/97 H 01/13/18 05:01 97 H 16 153/93 H Intake and Output (Last 8hrs): Intake & Output 01/12/18 01/13/18 01/13/18 22:59 06:59 14:59 Intake Total 635 550 200 Output Total 1100 1200 Balance -465 -650 200 Weight 146 lb 3.2 oz Intake: Intake, IV Amount 385 350 0 Left Antecubital 0 Right Hand 385 350 Oral 250 200 200 Output: Urine 1100 1200 Urine, Voided 1100 1200 Other: # Voids Urine, Voided 1 1 0 # Bowel Movements 0 0 - Physical Exam Head: Positive for: Atraumatic, Normocephalic Pupils: Positive for: PERRL Extroacular Muscles: Positive for: EOMI Conjunctiva: Positive for: Normal Mouth: Positive for: Moist Mucous Membranes Respiratory/Chest: Positive for: Clear to Auscultation. Negative for: Wheezes, Rales, Rhonchi Cardiovascular: Positive for: Normal S1, S2, Tachycardic Abdomen: Positive for: Normal Bowel Sounds. Negative for: Tenderness Upper Extremity: Positive for: Normal Inspection Lower Extremity: Positive for: Other (left femoral access site without signs of bleeding or hematoma) Neurological: Positive for: GCS=15 Skin: Positive for: Warm, Dry Psychiatric: Positive for: Alert, Oriented x 3 - Medications Active Medications: Active Medications Generic Name Dose Route Start Last Admin Trade Name Freq PRN Reason Stop Dose Admin Acetaminophen 650 mg 01/11/18 06:04 01/13/18 03:07 Tylenol 325mg Tab PO 650 mg Q6 PRN Administration CHEST PAIN Aspirin 81 mg 01/11/18 10:00 01/12/18 09:41 Ecotrin PO Not Given DAILY COUNT INCLUDES [facility] Clopidogrel Bisulfate 75 mg 01/11/18 10:00 01/12/18 09:42 Plavix PO Not Given DAILY COUNT INCLUDES [facility] Enoxaparin Sodium 40 mg 01/13/18 10:00 Lovenox SC DAILY DEREK Famotidine 20 mg 01/12/18 10:00 01/12/18 17:17 Pepcid PO 20 mg BID [facility]CLUDES [facility] Administration Insulin Aspart 0 unit 01/12/18 22:00 01/13/18 07:42 Novolog SC 6 unit ACHS COUNT INCLUDES [facility] Administration Protocol Insulin Glargine 15 unit 01/13/18 07:55 Lantus SC HS COUNT INCLUDES [facility] Losartan Potassium 25 mg 01/12/18 17:15 01/12/18 17:17 Cozaar PO 25 mg DAILY DEREK Administration Metoprolol Tartrate 50 mg 01/12/18 18:00 01/12/18 17:17 Lopressor PO 50 mg BID DEREK Administration Rosuvastatin Calcium 40 mg 01/11/18 22:00 01/12/18 22:01 Crestor PO 40 mg HS COUNT INCLUDES [facility] Administration - Patient Studies Lab Studies: Microbiology Studies 01/11/18 08:30 MRSA Culture (Admit) - Final Naris MRSA NOT DETECTED Lab Studies 01/13/18 01/13/18 01/13/18 Range/Units 07:28 06:04 06:04 WBC 10.2 (4.8-10.8) K/uL RBC 4.63 (4.40-5.90) Mil/uL Hgb 14.0 (12.0-18.0) g/dL Hct 40.7 (35.0-51.0) % MCV 88.0 (80.0-94.0) fL MCH 30.3 (27.0-31.0) pg MCHC 34.5 (33.0-37.0) g/dL RDW 12.3 (11.5-14.5) % Plt Count 233 (130-400) K/uL MPV 9.0 (7.2-11.7) fL Neut % (Auto) 71.0 (50.0-75.0) % Lymph % (Auto) 22.3 (20.0-40.0) % Faulkner % (Auto) 6.2 (0.0-10.0) % Eos % (Auto) 0.4 (0.0-4.0) % Baso % (Auto) 0.1 (0.0-2.0) % Neut # (Auto) 7.2 H (1.8-7.0) K/uL Lymph # (Auto) 2.3 (1.0-4.3) K/uL Faulkner # (Auto) 0.6 (0.0-0.8) K/uL Eos # (Auto) 0.0 (0.0-0.7) K/uL Baso # (Auto) 0.0 (0.0-0.2) K/uL Sodium 136 (132-148) mmol/L Potassium 3.9 (3.6-5.2) mmol/L Chloride 98 (98-107) mmol/L Carbon Dioxide 25 (22-30) mmol/L Anion Gap 16 (10-20) BUN 14 (9-20) mg/dL Creatinine 0.7 L (0.8-1.5) mg/dL Est GFR ( Amer) > 60 Est GFR (Non-Af Amer) > 60 POC Glucose (mg/dL) 293 H (65-110) mg/dL Random Glucose 370 H (75-110) mg/dL Calcium 9.1 (8.6-10.4) mg/dl Phosphorus 3.6 (2.5-4.5) mg/dL Magnesium 1.7 (1.6-2.3) mg/dL Total Bilirubin 0.6 (0.2-1.3) mg/dL AST 73 H D (17-59) U/L ALT 33 (21-72) U/L Alkaline Phosphatase 95 (38-126) U/L Total Protein 7.6 (6.3-8.3) g/dL Albumin 3.9 (3.5-5.0) g/dL Globulin 3.7 (2.2-3.9) gm/dL Albumin/Globulin Ratio 1.1 (1.0-2.1) 01/12/18 01/12/18 Range/Units 21:13 16:35 WBC (4.8-10.8) K/uL RBC (4.40-5.90) Mil/uL Hgb (12.0-18.0) g/dL Hct (35.0-51.0) % MCV (80.0-94.0) fL MCH (27.0-31.0) pg MCHC (33.0-37.0) g/dL RDW (11.5-14.5) % Plt Count (130-400) K/uL MPV (7.2-11.7) fL Neut % (Auto) (50.0-75.0) % Lymph % (Auto) (20.0-40.0) % Faulkner % (Auto) (0.0-10.0) % Eos % (Auto) (0.0-4.0) % Baso % (Auto) (0.0-2.0) % Neut # (Auto) (1.8-7.0) K/uL Lymph # (Auto) (1.0-4.3) K/uL Faulkner # (Auto) (0.0-0.8) K/uL Eos # (Auto) (0.0-0.7) K/uL Baso # (Auto) (0.0-0.2) K/uL Sodium (132-148) mmol/L Potassium (3.6-5.2) mmol/L Chloride (98-107) mmol/L Carbon Dioxide (22-30) mmol/L Anion Gap (10-20) BUN (9-20) mg/dL Creatinine (0.8-1.5) mg/dL Est GFR ( Amer) Est GFR (Non-Af Amer) POC Glucose (mg/dL) 284 H 394 H (65-110) mg/dL Random Glucose (75-110) mg/dL Calcium (8.6-10.4) mg/dl Phosphorus (2.5-4.5) mg/dL Magnesium (1.6-2.3) mg/dL Total Bilirubin (0.2-1.3) mg/dL AST (17-59) U/L ALT (21-72) U/L Alkaline Phosphatase (38-126) U/L Total Protein (6.3-8.3) g/dL Albumin (3.5-5.0) g/dL Globulin (2.2-3.9) gm/dL Albumin/Globulin Ratio (1.0-2.1) Laboratory Results - last 24 hr 01/12/18 01/12/18 01/13/18 16:35 21:13 06:04 WBC 10.2 RBC 4.63 Hgb 14.0 Hct 40.7 MCV 88.0 MCH 30.3 MCHC 34.5 RDW 12.3 Plt Count 233 MPV 9.0 Neut % (Auto) 71.0 Lymph % (Auto) 22.3 Faulkner % (Auto) 6.2 Eos % (Auto) 0.4 Baso % (Auto) 0.1 Neut # (Auto) 7.2 H Lymph # (Auto) 2.3 Faulkner # (Auto) 0.6 Eos # (Auto) 0.0 Baso # (Auto) 0.0 Sodium Potassium Chloride Carbon Dioxide Anion Gap BUN Creatinine Est GFR ( Amer) Est GFR (Non-Af Amer) POC Glucose (mg/dL) 394 H 284 H Random Glucose Calcium Phosphorus Magnesium Total Bilirubin AST ALT Alkaline Phosphatase Total Protein Albumin Globulin Albumin/Globulin Ratio 01/13/18 01/13/18 06:04 07:28 WBC RBC Hgb Hct MCV MCH MCHC RDW Plt Count MPV Neut % (Auto) Lymph % (Auto) Faulkner % (Auto) Eos % (Auto) Baso % (Auto) Neut # (Auto) Lymph # (Auto) Faulkner # (Auto) Eos # (Auto) Baso # (Auto) Sodium 136 Potassium 3.9 Chloride 98 Carbon Dioxide 25 Anion Gap 16 BUN 14 Creatinine 0.7 L Est GFR ( Amer) > 60 Est GFR (Non-Af Amer) > 60 POC Glucose (mg/dL) 293 H Random Glucose 370 H Calcium 9.1 Phosphorus 3.6 Magnesium 1.7 Total Bilirubin 0.6 AST 73 H D ALT 33 Alkaline Phosphatase 95 Total Protein 7.6 Albumin 3.9 Globulin 3.7 Albumin/Globulin Ratio 1.1 Fingerstick Blood Sugar Results: 293 Critical Care Progress Note - Nutrition Nutrition: Nutrition Category Date Time Status Heart Healthy Diet [DIET] Diets 01/12/18 Lunch Active Assessment/Plan - Assessment and Plan (Free Text) Assessment: This is a 52 year old male with PMHx HTN, DM, HLD who presented with chest pain. Patient was diagnosed with NSTEMI and taken to the bottle label inspector on 01/11/18 where he was found with multi-small vessel disease. Patient underwent PCI in [place] where drug eluting stents were placed. Neuro Awake, Alert Cardio Lopressor 25 mg PO BID Losartan 25 mg PO daily Crestor 40 mg PO HS ASA 81 mg PO daily Plavix 75 mg PO daily Pulm Saturating well Endocrine Accuchecks Novolog Sliding Scale Prophylaxis Pepcid 20 mg PO BID Lovenox 40 mg SC daily Disposition: transfer to telemetry Discussed with Dr. Arriaza <Anders Arriaza S - Last Filed: 01/13/18 18:17> CCU Objective - Vital Signs / Intake & Output Intake and Output (Last 8hrs): Intake & Output 01/13/18 01/13/18 01/13/18 06:59 14:59 22:59 Intake Total 550 670 Output Total 1200 Balance -650 670 Weight 146 lb 3.2 oz Intake: Intake, IV Amount 350 100 Left Antecubital 100 Right Hand 350 Oral 200 570 Output: Urine 1200 Urine, Voided 1200 Other: # Voids Urine, Voided 1 0 # Bowel Movements 0 - Medications Active Medications: Active Medications Generic Name Dose Route Start Last Admin Trade Name Freq PRN Reason Stop Dose Admin Acetaminophen 650 mg 01/11/18 06:04 01/13/18 03:07 Tylenol 325mg Tab PO 650 mg Q6 PRN Administration CHEST PAIN Aspirin 81 mg 01/11/18 10:00 01/13/18 09:09 Ecotrin PO 81 mg DAILY DEREK Administration Clopidogrel Bisulfate 75 mg 01/11/18 10:00 01/13/18 09:08 Plavix PO 75 mg DAILY DEREK Administration Enoxaparin Sodium 40 mg 01/13/18 10:00 01/13/18 09:09 Lovenox SC 40 mg DAILY DEREK Administration Famotidine 20 mg 01/12/18 10:00 01/13/18 17:37 Pepcid PO 20 mg BID DEREK Administration Insulin Aspart 0 unit 01/12/18 22:00 01/13/18 16:45 Novolog SC 4 unit ACHS DEREK Administration Protocol Insulin Glargine 15 unit 01/13/18 07:55 Lantus SC HS DEREK Losartan Potassium 25 mg 01/12/18 17:15 01/13/18 09:09 Cozaar PO 25 mg DAILY DEREK Administration Metoprolol Tartrate 50 mg 01/12/18 18:00 01/13/18 17:37 Lopressor PO 50 mg BID DEREK Administration Rosuvastatin Calcium 40 mg 01/11/18 22:00 01/12/18 22:01 Crestor PO 40 mg HS DEREK Administration - Patient Studies Lab Studies: Lab Studies 01/13/18 01/13/18 01/13/18 Range/Units 16:05 11:10 07:28 WBC (4.8-10.8) K/uL RBC (4.40-5.90) Mil/uL Hgb (12.0-18.0) g/dL Hct (35.0-51.0) % MCV (80.0-94.0) fL MCH (27.0-31.0) pg MCHC (33.0-37.0) g/dL RDW (11.5-14.5) % Plt Count (130-400) K/uL MPV (7.2-11.7) fL Neut % (Auto) (50.0-75.0) % Lymph % (Auto) (20.0-40.0) % Faulkner % (Auto) (0.0-10.0) % Eos % (Auto) (0.0-4.0) % Baso % (Auto) (0.0-2.0) % Neut # (Auto) (1.8-7.0) K/uL Lymph # (Auto) (1.0-4.3) K/uL Faulkner # (Auto) (0.0-0.8) K/uL Eos # (Auto) (0.0-0.7) K/uL Baso # (Auto) (0.0-0.2) K/uL Sodium (132-148) mmol/L Potassium (3.6-5.2) mmol/L Chloride (98-107) mmol/L Carbon Dioxide (22-30) mmol/L Anion Gap (10-20) BUN (9-20) mg/dL Creatinine (0.8-1.5) mg/dL Est GFR ( Amer) Est GFR (Non-Af Amer) POC Glucose (mg/dL) 246 H 322 H 293 H (65-110) mg/dL Random Glucose (75-110) mg/dL Calcium (8.6-10.4) mg/dl Phosphorus (2.5-4.5) mg/dL Magnesium (1.6-2.3) mg/dL Total Bilirubin (0.2-1.3) mg/dL AST (17-59) U/L ALT (21-72) U/L Alkaline Phosphatase (38-126) U/L Total Protein (6.3-8.3) g/dL Albumin (3.5-5.0) g/dL Globulin (2.2-3.9) gm/dL Albumin/Globulin Ratio (1.0-2.1) 01/13/18 01/13/18 01/12/18 Range/Units 06:04 06:04 21:13 WBC 10.2 (4.8-10.8) K/uL RBC 4.63 (4.40-5.90) Mil/uL Hgb 14.0 (12.0-18.0) g/dL Hct 40.7 (35.0-51.0) % MCV 88.0 (80.0-94.0) fL MCH 30.3 (27.0-31.0) pg MCHC 34.5 (33.0-37.0) g/dL RDW 12.3 (11.5-14.5) % Plt Count 233 (130-400) K/uL MPV 9.0 (7.2-11.7) fL Neut % (Auto) 71.0 (50.0-75.0) % Lymph % (Auto) 22.3 (20.0-40.0) % Faulkner % (Auto) 6.2 (0.0-10.0) % Eos % (Auto) 0.4 (0.0-4.0) % Baso % (Auto) 0.1 (0.0-2.0) % Neut # (Auto) 7.2 H (1.8-7.0) K/uL Lymph # (Auto) 2.3 (1.0-4.3) K/uL Faulkner # (Auto) 0.6 (0.0-0.8) K/uL Eos # (Auto) 0.0 (0.0-0.7) K/uL Baso # (Auto) 0.0 (0.0-0.2) K/uL Sodium 136 (132-148) mmol/L Potassium 3.9 (3.6-5.2) mmol/L Chloride 98 (98-107) mmol/L Carbon Dioxide 25 (22-30) mmol/L Anion Gap 16 (10-20) BUN 14 (9-20) mg/dL Creatinine 0.7 L (0.8-1.5) mg/dL Est GFR ( Amer) > 60 Est GFR (Non-Af Amer) > 60 POC Glucose (mg/dL) 284 H (65-110) mg/dL Random Glucose 370 H (75-110) mg/dL Calcium 9.1 (8.6-10.4) mg/dl Phosphorus 3.6 (2.5-4.5) mg/dL Magnesium 1.7 (1.6-2.3) mg/dL Total Bilirubin 0.6 (0.2-1.3) mg/dL AST 73 H D (17-59) U/L ALT 33 (21-72) U/L Alkaline Phosphatase 95 (38-126) U/L Total Protein 7.6 (6.3-8.3) g/dL Albumin 3.9 (3.5-5.0) g/dL Globulin 3.7 (2.2-3.9) gm/dL Albumin/Globulin Ratio 1.1 (1.0-2.1) Laboratory Results - last 24 hr 01/12/18 01/13/18 01/13/18 21:13 06:04 06:04 WBC 10.2 RBC 4.63 Hgb 14.0 Hct 40.7 MCV 88.0 MCH 30.3 MCHC 34.5 RDW 12.3 Plt Count 233 MPV 9.0 Neut % (Auto) 71.0 Lymph % (Auto) 22.3 Faulkner % (Auto) 6.2 Eos % (Auto) 0.4 Baso % (Auto) 0.1 Neut # (Auto) 7.2 H Lymph # (Auto) 2.3 Faulkner # (Auto) 0.6 Eos # (Auto) 0.0 Baso # (Auto) 0.0 Sodium 136 Potassium 3.9 Chloride 98 Carbon Dioxide 25 Anion Gap 16 BUN 14 Creatinine 0.7 L Est GFR ( Amer) > 60 Est GFR (Non-Af Amer) > 60 POC Glucose (mg/dL) 284 H Random Glucose 370 H Calcium 9.1 Phosphorus 3.6 Magnesium 1.7 Total Bilirubin 0.6 AST 73 H D ALT 33 Alkaline Phosphatase 95 Total Protein 7.6 Albumin 3.9 Globulin 3.7 Albumin/Globulin Ratio 1.1 01/13/18 01/13/18 01/13/18 07:28 11:10 16:05 WBC RBC Hgb Hct MCV MCH MCHC RDW Plt Count MPV Neut % (Auto) Lymph % (Auto) Faulkner % (Auto) Eos % (Auto) Baso % (Auto) Neut # (Auto) Lymph # (Auto) Faulkner # (Auto) Eos # (Auto) Baso # (Auto) Sodium Potassium Chloride Carbon Dioxide Anion Gap BUN Creatinine Est GFR ( Amer) Est GFR (Non-Af Amer) POC Glucose (mg/dL) 293 H 322 H 246 H Random Glucose Calcium Phosphorus Magnesium Total Bilirubin AST ALT Alkaline Phosphatase Total Protein Albumin Globulin Albumin/Globulin Ratio Critical Care Progress Note - Nutrition Nutrition: Nutrition Category Date Time Status Heart Healthy Diet [DIET] Diets 01/12/18 Lunch Active Attending/Attestation - Attestation I have personally seen and examined this patient.: Yes I have fully participated in the care of the patient.: Yes I have reviewed all pertinent clinical information: Yes Notes (Text): 01/13/18 18:17 patient seen and examined in the intensive care unit. Stable for transfer to telemetry
[2018-01-13] MEDS ORDERED: Sodium Chloride 0.9% 1,000 ML IV SCH (08:45)
[2018-01-13] MEDS: Enoxaparin 40 mg Syringe SC SCH (09:09)
[2018-01-13] MEDS ORDERED: (Lantus) Insulin Glargine, Recombinant SC ONE (13:07)
--- NOTE | 2018-01-13 15:08 | CP.PCM.PN ---
<Tucker Bledsoe - Last Filed: 01/13/18 17:38> Subjective - Date & Time of Evaluation Date of Evaluation: 01/13/18 Time of Evaluation: 15:05 - Subjective Subjective: PGY-[address] Louis's cardiology service: Pt seen and examined at bedside. Nursing reports no acute events overnight. Pt s /p DOLORES placement at [facility] yesterday. Patient found sitting at bedside with family member present. Patient denies chest pain, dyspnea with exertion. He is asking whe n he may leave the hospital. Pt advised medical teams looking for better glucose/pressure control before discharge. Objective - Vital Signs/Intake and Output Vital Signs (last 24 hours): Temp Pulse Resp BP Pulse Ox 98.0 F 95 H 21 162/104 H 97 01/13/18 12:00 01/13/18 14:01 01/13/18 14:01 01/13/18 14:01 01/13/18 12:00 Intake and Output: 01/13/18 01/13/18 06:59 18:59 Intake Total 830 670 Output Total 1950 Balance -1120 670 - Medications Medications: Current Medications Acetaminophen (Tylenol 325mg Tab) 650 mg PO Q6 PRN PRN Reason: CHEST PAIN Last Admin: 01/13/18 03:07 Dose: 650 mg Aspirin (Ecotrin) 81 mg PO DAILY [facility] Last Admin: 01/13/18 09:09 Dose: 81 mg Clopidogrel Bisulfate (Plavix) 75 mg PO DAILY [facility] Last Admin: 01/13/18 09:08 Dose: 75 mg Enoxaparin Sodium (Lovenox) 40 mg SC DAILY [facility] Last Admin: 01/13/18 09:09 Dose: 40 mg Famotidine (Pepcid) 20 mg PO BID [facility] Last Admin: 01/13/18 09:09 Dose: 20 mg Insulin Aspart (Novolog) 0 unit SC [facility] PRN Reason: Protocol Last Admin: 01/13/18 12:23 Dose: 8 unit Insulin Glargine (Lantus) 15 unit SC HS [facility] Losartan Potassium (Cozaar) 25 mg PO DAILY [facility] Last Admin: 01/13/18 09:09 Dose: 25 mg Metoprolol Tartrate (Lopressor) 50 mg PO BID [facility] Last Admin: 01/13/18 09:09 Dose: 50 mg Rosuvastatin Calcium (Crestor) 40 mg PO HS [facility] Last Admin: 01/12/18 22:01 Dose: 40 mg - Labs Labs: 01/13/18 06:04 01/13/18 06:04 PT 12.6 SECONDS (9.7-12.2) H 01/10/18 20:34 INR 1.1 01/10/18 20:34 APTT 28 SECONDS (21-34) 01/10/18 20:34 - Constitutional Appears: Non-toxic, No Acute Distress - Head Exam Head Exam: ATRAUMATIC, NORMAL INSPECTION - Eye Exam Eye Exam: EOMI. absent: Scleral icterus - ENT Exam ENT Exam: Mucous Membranes Moist - Respiratory Exam Respiratory Exam: Clear to Ausculation Bilateral, NORMAL BREATHING PATTERN. absent: Rhonchi, Wheezes - Cardiovascular Exam Cardiovascular Exam: REGULAR RHYTHM, +S1, +S2 - GI/Abdominal Exam GI & Abdominal Exam: Soft, Normal Bowel Sounds - Neurological Exam Neurological Exam: Alert, Awake Assessment and Plan - Assessment and Plan (Free Text) Plan: NSTEMI Hx of DM, HTN, HLD Patient s/p L Cx and OM 1Drug Eluting stents placement Plavix 75mg PO Daily ASA 81mg PO Daily Losartan 25mg PO daily Lopressor 50mg PO BID Crestor 40mg PO HS Monitoring pt BP. IF better controlled can be stable for discharge from cardiology perspective <Feliz Louis - Last Filed: 01/13/18 22:05> Objective - Vital Signs/Intake and Output Vital Signs (last 24 hours): Temp Pulse Resp BP Pulse Ox 98.2 F 81 12 135/86 97 01/13/18 20:00 01/13/18 20:00 01/13/18 20:00 01/13/18 20:00 01/13/18 20:00 Intake and Output: 01/13/18 01/14/18 18:59 06:59 Intake Total 920 240 Balance 920 240 - Medications Medications: Current Medications Acetaminophen (Tylenol 325mg Tab) 650 mg PO Q6 PRN PRN Reason: CHEST PAIN Last Admin: 01/13/18 03:07 Dose: 650 mg Aspirin (Ecotrin) 81 mg PO DAILY [facility] Last Admin: 01/13/18 09:09 Dose: 81 mg Clopidogrel Bisulfate (Plavix) 75 mg PO DAILY [facility] Last Admin: 01/13/18 09:08 Dose: 75 mg Enoxaparin Sodium (Lovenox) 40 mg SC DAILY [facility] Last Admin: 01/13/18 09:09 Dose: 40 mg Famotidine (Pepcid) 20 mg PO BID [facility] Last Admin: 01/13/18 17:37 Dose: 20 mg Insulin Aspart (Novolog) 0 unit SC [facility] PRN Reason: Protocol Last Admin: 01/13/18 21:22 Dose: Not Given Insulin Glargine (Lantus) 15 unit SC [facility] Last Admin: 01/13/18 21:21 Dose: 15 units Losartan Potassium (Cozaar) 25 mg PO DAILY [facility] Last Admin: 01/13/18 09:09 Dose: 25 mg Metoprolol Tartrate (Lopressor) 50 mg PO BID [facility] Last Admin: 01/13/18 17:37 Dose: 50 mg Rosuvastatin Calcium (Crestor) 40 mg PO [facility] Last Admin: 01/13/18 21:22 Dose: 40 mg - Labs Labs: 01/13/18 06:04 01/13/18 06:04 PT 12.6 SECONDS (9.7-12.2) H 01/10/18 20:34 INR 1.1 01/10/18 20:34 APTT 28 SECONDS (21-34) 01/10/18 20:34 Assessment and Plan - Assessment and Plan (Free Text) Plan: Patient seen and evaluated personally by il Plan of care d/w the medical office rep and as documented
[2018-01-14] MEDS: (Novolog) Insulin Aspart, Recombinant 100 u/ml 10 ml vial SC SCH ×2 (07:47→11:47)
[2018-01-14 08:20] VITALS: BP 133/90
[2018-01-14 08:28] VITALS: O2SAT 98
[2018-01-14] MEDS ORDERED: (Lantus) Insulin Glargine, Recombinant SC SCH (09:04)
--- NOTE | 2018-01-14 09:09 | CP.PCM.PN ---
Subjective - Date & Time of Evaluation Date of Evaluation: 01/14/18 Time of Evaluation: 10:00 - Subjective Subjective: Laboratory reviewed Glucose still on the high side- will adjust insulinplan of home was held due to elevated blood pressure today- is getting better and Bp meds adjusted patient is ready to go home aware of insulin , discussed other changes in medications further discussion with family patient agreed to come to clinic tomorrow Objective - Vital Signs/Intake and Output Vital Signs (last 24 hours): Temp Pulse Resp BP Pulse Ox 98.0 F 84 17 133/90 98 01/14/18 08:00 01/14/18 08:00 01/14/18 08:00 01/14/18 07:47 01/14/18 08:00 Intake and Output: 01/14/18 01/14/18 06:59 18:59 Intake Total 580 180 Output Total 1300 Balance -720 180 - Medications Medications: Current Medications Acetaminophen (Tylenol 325mg Tab) 650 mg PO Q6 PRN PRN Reason: CHEST PAIN Last Admin: 01/14/18 04:33 Dose: 650 mg Aspirin (Ecotrin) 81 mg PO DAILY [facility] Last Admin: 01/13/18 09:09 Dose: 81 mg Clopidogrel Bisulfate (Plavix) 75 mg PO DAILY [facility] Last Admin: 01/13/18 09:08 Dose: 75 mg Enoxaparin Sodium (Lovenox) 40 mg SC DAILY [facility] Last Admin: 01/13/18 09:09 Dose: 40 mg Famotidine (Pepcid) 20 mg PO BID [facility] Last Admin: 01/13/18 17:37 Dose: 20 mg Insulin Aspart (Novolog) 0 unit SC [facility] PRN Reason: Protocol Last Admin: 01/14/18 07:47 Dose: 4 unit Insulin Glargine (Lantus) 20 unit SC [facility] Insulin Glargine (Lantus) 5 unit SC ONCE ONE Stop: 01/14/18 09:16 Losartan Potassium (Cozaar) 50 mg PO DAILY [facility] Metoprolol Tartrate (Lopressor) 50 mg PO BID [facility] Last Admin: 01/13/18 17:37 Dose: 50 mg Rosuvastatin Calcium (Crestor) 40 mg PO HS [facility] Last Admin: 01/13/18 21:22 Dose: 40 mg - Labs Labs: 01/13/18 06:04 04/18/18 06:04 PT 12.6 SECONDS (9.7-12.2) H 01/10/18 20:34 INR 1.1 01/10/18 20:34 APTT 28 SECONDS (21-34) 01/10/18 20:34 - Constitutional Appears: Non-toxic (ambulatory, just got back from [place], no chest pains. feeding god ) - Head Exam Head Exam: ATRAUMATIC, NORMOCEPHALIC - Eye Exam Eye Exam: Normal appearance, Nystagmus - ENT Exam ENT Exam: Mucous Membranes Moist - Neck Exam Neck Exam: Full ROM, Normal Inspection. absent: Tenderness - Respiratory Exam Respiratory Exam: Clear to Ausculation Bilateral, NORMAL BREATHING PATTERN - Cardiovascular Exam Cardiovascular Exam: Clicks - GI/Abdominal Exam GI & Abdominal Exam: Soft, Normal Bowel Sounds - Extremities Exam Extremities Exam: Full ROM, Normal Inspection. absent: Pedal Edema - Back Exam Back Exam: Full ROM. absent: rash noted - Neurological Exam Neurological Exam: Alert, Awake, Normal Gait, Oriented x3 - Psychiatric Exam Psychiatric exam: Normal Affect, Normal Mood - Skin Skin Exam: Intact, Normal Color Assessment and Plan - Assessment and Plan (Free Text) Assessment: PATIENT WITH CAD-POST STENT- WITH HYPERTENSION THAT NEEDED DOSE ADJUSTMENT UNCONTROLLED DM-RECENTLY STARTED ON INSULIN, ADJUSTING DOSAGES PATIENT HAS NO COMPLAINTS, CAN SEND HOME. DISCUSSION OF BP AND SUGAR DIARIES FOR REVIEW IN THE CLINIC WILL SEE PATIENT IN THE CLINIC TOMORROW FOR FURTHER MANAGEMENT
[2018-01-14] MEDS ORDERED: (Lantus) Insulin Glargine, Recombinant SC ONE (09:15)
[2018-01-14] MEDS: Enoxaparin 40 mg Syringe SC SCH (09:27)
[2018-01-14 12:01] VITALS: PULSE 86; RESP 18; TEMP 98.5
--- NOTE | 2018-01-14 13:13 | CP.PCM.DIS ---
Provider - Provider Date of Admission: 01/11/18 00:12 Attending physician: Myriam Gamboa MD Time Spent in preparation of Discharge (in minutes): 30 Hospital Course - Lab Results Lab Results: Micro Results 01/11/18 08:30 Naris MRSA Culture (Admit) - Final MRSA NOT DETECTED Most Recent Lab Values WBC 10.2 K/uL (4.8-10.8) 01/13/18 06:04 RBC 4.63 Mil/uL (4.40-5.90) 01/13/18 06:04 Hgb 14.0 g/dL (12.0-18.0) 01/13/18 06:04 Hct 40.7 % (35.0-51.0) 01/13/18 06:04 MCV 88.0 fL (80.0-94.0) 01/13/18 06:04 MCH 30.3 pg (27.0-31.0) 01/13/18 06:04 MCHC 34.5 g/dL (33.0-37.0) 01/13/18 06:04 RDW 12.3 % (11.5-14.5) 01/13/18 06:04 Plt Count 233 K/uL (130-400) 01/13/18 06:04 MPV 9.0 fL (7.2-11.7) 01/13/18 06:04 Neut % (Auto) 71.0 % (50.0-75.0) 01/13/18 06:04 Lymph % (Auto) 22.3 % (20.0-40.0) 01/13/18 06:04 Wilson % (Auto) 6.2 % (0.0-10.0) 01/13/18 06:04 Eos % (Auto) 0.4 % (0.0-4.0) 01/13/18 06:04 Baso % (Auto) 0.1 % (0.0-2.0) 01/13/18 06:04 Neut # (Auto) 7.2 K/uL (1.8-7.0) H 01/13/18 06:04 Lymph # (Auto) 2.3 K/uL (1.0-4.3) 01/13/18 06:04 Wilson # (Auto) 0.6 K/uL (0.0-0.8) 01/13/18 06:04 Eos # (Auto) 0.0 K/uL (0.0-0.7) 01/13/18 06:04 Baso # (Auto) 0.0 K/uL (0.0-0.2) 01/13/18 06:04 PT 12.6 SECONDS (9.7-12.2) H 01/10/18 20:34 INR 1.1 01/10/18 20:34 APTT 28 SECONDS (21-34) 01/10/18 20:34 D-Dimer, Quantitative < 200 ng/mlDDU (0-243) 01/10/18 20:34 Sodium 136 mmol/L (132-148) 01/13/18 06:04 Potassium 3.9 mmol/L (3.6-5.2) 01/13/18 06:04 Chloride 98 mmol/L (98-107) 01/13/18 06:04 Carbon Dioxide 25 mmol/L (22-30) 01/13/18 06:04 Anion Gap 16 (10-20) 01/13/18 06:04 BUN 14 mg/dL (9-20) 01/13/18 06:04 Creatinine 0.7 mg/dL (0.8-1.5) L 01/13/18 06:04 Est GFR ( Amer) > 60 01/13/18 06:04 Est GFR (Non-Af Amer) > 60 01/13/18 06:04 POC Glucose (mg/dL) 332 mg/dL (65-110) H 01/14/18 11:18 Random Glucose 370 mg/dL (75-110) H 01/13/18 06:04 Hemoglobin A1c 10.3 % (4.2-6.5) H 01/11/18 03:59 Calcium 9.1 mg/dl (8.6-10.4) 01/13/18 06:04 Phosphorus 3.6 mg/dL (2.5-4.5) 01/13/18 06:04 Magnesium 1.7 mg/dL (1.6-2.3) 01/13/18 06:04 Total Bilirubin 0.6 mg/dL (0.2-1.3) 01/13/18 06:04 AST 73 U/L (17-59) H D 01/13/18 06:04 ALT 33 U/L (21-72) 01/13/18 06:04 Alkaline Phosphatase 95 U/L (38-126) 01/13/18 06:04 Total Creatine Kinase 440 U/L (55-170) H 01/11/18 03:59 CK-MB (Mass) 20.3 ng/mL (0.0-3.38) H 01/11/18 03:59 Troponin I 13.1000 ng/mL (0.00-0.120) H* 01/11/18 19:30 NT-Pro-B Natriuret Pep 35.2 pg/mL (0-900) 01/10/18 20:34 Total Protein 7.6 g/dL (6.3-8.3) 01/13/18 06:04 Albumin 3.9 g/dL (3.5-5.0) 01/13/18 06:04 Globulin 3.7 gm/dL (2.2-3.9) 01/13/18 06:04 Albumin/Globulin Ratio 1.1 (1.0-2.1) 01/13/18 06:04 Lipase 202 U/L (23-300) 01/10/18 20:34 - Hospital Course Hospital Course: ADMITTED FOR CHEST PAIN, FOUND TO HAVE NSTEMI, UNDERWENT CARDIAC CATHETERIZATION AND NEEDED STENT- WAS TRANSFERRED TO [place] FOR STENT , BACK TO [facility], , PLANNING FOR DISCHARGE, BUT PATIENT HAD ELEVATED BLOOD PRESSURE HAD HEADACHE, , NEEDED MED ADJUSTMENT TODAY, BP GOT BETTER- PATIENT WAS STRTED ON INSULIN, WILL DELAY RESUMING ORAL DM MEDS DUE TO DYE RECEUIVED DISCUSSION OF HOME PLAN, WILL FOLLOW UP IN THE CLINIC TOMORROW WITH BP AND SUGAR DIARIES DISCUSSION WITH PATIENT AND FAMILY Discharge Exam - Head Exam Head Exam: ATRAUMATIC, NORMOCEPHALIC Discharge Plan - Follow Up Plan Condition: SERIOUS Disposition: HOME/ ROUTINE Instructions: Diabetes Exchange Diet, Low Cholesterol, Saturated Fat, and Trans Fat Diet , Insulin Injection, Heart Attack (DC), Low Blood Sugar, Adult ( DC), Diabetes Diet , Chest Pain (DC), Hyperglycemia, Adult (DC), Blood Glucose Monitoring, Heart Disease in Diabetics (DC), Diabetes and Infections, Diabetic Meal Planning , How to Use an Insulin Pen
--- NOTE | 2018-01-14 14:30 | CP.PCM.PN ---
Subjective - Date & Time of Evaluation Date of Evaluation: 01/14/18 Time of Evaluation: 14:30 - Subjective Subjective: PT SEEN THIS MORNING BY DR. CR AND CLEARED FOR D/C. I CALLED DR. TENA FOR CLEARANCE AND HE CLEARED PT FOR D/C WELL. PER DR. TENA, PT TO BE RX METOPROLOL, LOSARTAN (NEW DOSE), PLAVIX, AND TO CONTINUE STATIN AND ASA. RX FOR LANTUS PEN GIVEN TO THE PT WELL. HAD A LENGTHY DISCUSSION WITH PT AND FAMILY ABOUT USING INSULIN THE RIGHT WAY AND LIFESTYLE/DIETARY MODIFICATIONS NOW THAT HE IS ON INSULIN. RX FOR NEW GLUCOMETER AND BP MACHINE GIVEN. PT TO F /U WITH DR. CR IN THE OFFICE TOMORROW MORNING AND IN FEBRUARY WITH DR. TENA. SEE BELOW FOR D/C PLAN. NO FURTHER ORDERS. -FOLLOW UP WITH DR. CR IN HER OFFICE TOMORROW MORNING AT 9AM. -FOLLOW UP WITH DR. TENA IN THE OFFICE IN FEBRUARY---CONTACT THE OFFICE THIS WEEK TO SCHEDULE YOUR FOLLOW UP APPOINTMENT. -YOU MAY RETURN TO WORK ON 01/21/18. -THERE ARE SOME CHANGES REGARDING YOUR HOME MEDICATIONS: 1) STOP TAKING AMLODIPINE (NORVASC) 2) STOP TAKING ALL BLOOD SUGAR ORAL MEDICATIONS 3) CONTINUE TAKING ASPIRIN 81 MG (1 TABLET) BY MOUTH ONCE A DAY. 4) CONTINUE TAKING ATORVASTATIN 20 MG (1 TABLET) BY MOUTH AT BEDTIME. -NEW MEDICATIONS INCLUDE: 1) LOSARTAN 50 MG (TAKE 1 TABLET) BY MOUTH ONCE A DAY---START ON THURSDAY, . 2) METOPROLOL 50 MG (TAKE 1 TABLET) BY MOUTH TWICE A DAY (IN THE MORNING AND IN THE EVENING)---START TONIGHT 01/14/18. 3) LANTUS (INSULIN) 20 UNITS INJECTED AT BEDTIME---START TONIGHT 01/14/18. 4) PLAVIX 75 MG (SIMILAR TO ASPIRIN) 75 MG (TAKE 1 TABLET) BY MOUTH ONCE A DAY- --START ON 01/15/18. -YOU HAVE BEEN GIVEN PRESCRIPTIONS FOR A NEW ONE TOUCH MACHINE AND THINNER LANCETS TO PRICK YOUR FINGERS WELL A NEW BLOOD PRESSURE CUFF. -REMEMBER, NOW THAT YOU ARE ON INSULIN, YOU MUST EAT! EVEN IF YOU HAVE NO APPETITE IT IS IMPORTANT TO EAT A LIGHT BREAKFAST, LUNCH, AND DINNER. IF YOU DON 'T EAT AND TAKE YOUR INSULIN, YOU RISK PASSING OUT FROM LOW SUGAR. Objective - Vital Signs/Intake and Output Vital Signs (last 24 hours): Temp Pulse Resp BP Pulse Ox 98.5 F 86 18 133/90 98 01/14/18 12:00 01/14/18 12:00 01/14/18 12:00 01/14/18 07:47 01/14/18 12:00 Intake and Output: 01/14/18 01/14/18 06:59 18:59 Intake Total 580 840 Output Total 1300 Balance -720 840 - Medications Medications: Current Medications Acetaminophen (Tylenol 325mg Tab) 650 mg PO Q6 PRN PRN Reason: CHEST PAIN Last Admin: 01/14/18 04:33 Dose: 650 mg Aspirin (Ecotrin) 81 mg PO DAILY [facility] Last Admin: 01/14/18 09:27 Dose: 81 mg Clopidogrel Bisulfate (Plavix) 75 mg PO DAILY [facility] Last Admin: 01/14/18 09:27 Dose: 75 mg Enoxaparin Sodium (Lovenox) 40 mg SC DAILY [facility] Last Admin: 01/14/18 09:27 Dose: 40 mg Famotidine (Pepcid) 20 mg PO BID [facility] Last Admin: 01/14/18 09:27 Dose: 20 mg Insulin Aspart (Novolog) 0 unit SC [facility] PRN Reason: Protocol Last Admin: 01/14/18 11:47 Dose: 8 unit Insulin Glargine (Lantus) 20 unit SC HS [facility] Losartan Potassium (Cozaar) 50 mg PO DAILY [facility] Last Admin: 01/14/18 09:27 Dose: 50 mg Metoprolol Tartrate (Lopressor) 50 mg PO BID [facility] Last Admin: 01/14/18 09:27 Dose: 50 mg Rosuvastatin Calcium (Crestor) 40 mg PO HS [facility] Last Admin: 01/13/18 21:22 Dose: 40 mg - Labs Labs: 01/13/18 06:04 01/13/18 06:04 PT 12.6 SECONDS (9.7-12.2) H 01/10/18 20:34 INR 1.1 01/10/18 20:34 APTT 28 SECONDS (21-34) 01/10/18 20:34
--- NOTE | 2018-01-14 23:11 | CP.PCM.PN ---
Subjective - Date & Time of Evaluation Date of Evaluation: 01/14/18 Time of Evaluation: 08:05 - Subjective Subjective: Patient seen and evaluated deneis chest pain and dyspnea Review of Systems - Constitutional Constitutional: absent: Anorexia, Chills, Fever - EENT Eyes: absent: Other Visual Disturbances Ears: absent: Decreased Hearing Nose/Mouth/Throat: absent: Epistaxis, Nasal Congestion, Sore Throat - Cardiovascular Cardiovascular: No Chest Pain, Dyspnea, Lightheadedness, Syncope - Respiratory Respiratory: absent: Cough - Gastrointestinal Gastrointestinal: absent: Abdominal Pain, Diarrhea, Vomiting - Genitourinary Genitourinary: absent: Difficulty Urinating, Flank Pain, Hematuria - Musculoskeletal Musculoskeletal: absent: Abnormal Gait, Deformity - Integumentary Integumentary: absent: Bleeding Lesions, Skin Ulcer, Sores, Jaundice - Neurological Neurological: absent: Abnormal Gait, Behavioral Changes, Disequilibrium, Dizziness - Psychiatric Psychiatric: absent: Confusion, Depression, Memory Loss - Endocrine Endocrine: absent: Polydipsia, Polyphagia - Hematologic/Lymphatic Hematologic: Easy Bruising. absent: Easy Bleeding Physical Exam - Constitutional Appears: well - Head Exam Head Exam: ATRAUMATIC, NORMOCEPHALIC - Eye Exam Eye Exam: Normal appearance. absent: Nystagmus - ENT Exam ENT Exam: Mucous Membranes Moist - Neck Exam Neck exam: Positive for: Full Rom - Respiratory Exam Respiratory Exam: Clear to Auscultation Bilateral, NORMAL BREATHING PATTERN - Cardiovascular Exam Cardiovascular Exam: REGULAR RHYTHM - GI/Abdominal Exam GI & Abdominal Exam: Normal Bowel Sounds, Soft - Extremities Exam Extremities exam: Positive for: full ROM, normal inspection, pedal pulses present. Negative for: joint swelling, pedal edema, tenderness - Back Exam Back exam: FULL ROM. absent: rash noted, tenderness - Neurological Exam Neurological exam: Alert, Normal Gait, Oriented x3, Reflexes Normal - Psychiatric Exam Psychiatric exam: Normal Affect, Normal Mood - Skin Skin Exam: Intact, Normal Color Objective - Vital Signs/Intake and Output Vital Signs (last 24 hours): Temp Pulse Resp BP Pulse Ox 98.5 F 86 18 133/90 98 01/14/18 12:00 01/14/18 12:00 01/14/18 12:00 01/14/18 07:47 01/14/18 12:00 Intake and Output: 01/14/18 01/15/18 18:59 06:59 Intake Total 840 Balance 840 - Labs Labs: 01/13/18 06:04 01/13/18 06:04 PT 12.6 SECONDS (9.7-12.2) H 01/10/18 20:34 INR 1.1 01/10/18 20:34 APTT 28 SECONDS (21-34) 01/10/18 20:34 Assessment and Plan - Assessment and Plan (Free Text) Assessment: NSTEMI Hx of DM, HTN, HLD Patient s/p L Cx and OM 1 Drug Eluting stents placement Plavix 75mg PO Daily ASA 81mg PO Daily Losartan 25mg PO daily Lopressor 50mg PO BID Crestor 40mg PO HS
== END 2018-01-14 14:50 | disposition home or self-care (01) | DRG 247 ==
LOC: C.ER 20:07 → C.9E 01-11 00:12 → C.9I 01-11 06:12
PROVIDERS: ADMIT Internal Medicine; ATTEND Internal Medicine
PROC: 4A023N7 Measurement of Cardiac Sampling and Pressure, Left Heart, Percutaneous Approach (ICD-10-PCS; 2018-01-11)
PROC: B211YZZ Fluoroscopy of Multiple Coronary Arteries using Other Contrast (ICD-10-PCS; 2018-01-11)
PROC: B215YZZ Fluoroscopy of Left Heart using Other Contrast (ICD-10-PCS; 2018-01-11)
PROC: 027035Z Dilation of Coronary Artery, One Artery with Two Drug-eluting Intraluminal Devices, Percutaneous Approach (ICD-10-PCS; principal; 2018-01-12)
DX: I21.4 Non-ST elevation (NSTEMI) myocardial infarction (principal); E11.65 Type 2 diabetes mellitus with hyperglycemia; I10 Essential (primary) hypertension; I25.10 Atherosclerotic heart disease of native coronary artery without angina pectoris; N20.0 Calculus of kidney; Z79.4 Long term (current) use of insulin; Z91.19 Patient's noncompliance with other medical treatment and regimen; Z95.5 Presence of coronary angioplasty implant and graft; E78.5 Hyperlipidemia, unspecified